=== PATIENT | male | born 1955 | race Caucasian/White ===

== ENCOUNTER → 2017-10-07 07:30 | Outpatient (CLI) | payer OTHER, SELFPAY ==
[2017-10-07 09:10] LABS: Add Manual Diff / Slide Review NO; Basophils Percent Auto 0.6 % (0-2); Eosinophils Percent Auto 6.6 % (2-4); Hematocrit 44.2 % (41-53); Hemoglobin 15.2 g/dL (13.5-17.5); Lymphocytes Percent Auto 31.7 % (25-40); Mean Corpuscular HGB Conc 34.4 % (30-36); Mean Corpuscular Hemoglobin 28.5 PG (26-34); Mean Corpuscular Volume 82.8 fL (80-100); Monocytes Percent Auto 8.5 % (3-14); Neutrophils Absolute Auto 3200 /uL (3000-5900); Neutrophils Percent Auto 52.6 % (50-75); Platelet Count 236 X10^3/uL (150-400); Red Blood Cell Count 5.34 X10^6/uL (4.5-5.9); Red Cell Distribution Width 14.1 % (11.6-14.8)
[2017-10-07 09:41] LABS: Calcium 9.2 mg/dL (8.4-10.2); Estimated Glomerular Filt Rate > 60.0 mL/min (>60); Glucose 91 mg/dL (80-110); HEMOLYSIS < 15 (0-50); Potassium 3.8 mmol/L (3.4-5.1); Sodium 142 mmol/L (137-145)
== END ==
PROVIDERS: PCP Family Medicine; Visit Provider Internal Medicine Cardiovascular Disease
DX: R93.1 Abnormal findings on diagnostic imaging of heart and coronary circulation (principal); I10 Essential (primary) hypertension; E78.00 Pure hypercholesterolemia, unspecified
CPT/HCPCS: 36415; 80048; 85025

== ENCOUNTER → 2017-10-28 09:21 | Outpatient (CLI) | payer OTHER, SELFPAY ==
--- NOTE | 2017-10-28 09:24 | DI.RAD.S_ITS ---
PROCEDURE: XR ELBOW RT MIN 3V INDICATIONS: Chronic elbow pain TECHNIQUE: 3 views of the elbow were acquired. COMPARISON: None. FINDINGS: Bones: No fractures or dislocations. No suspicious bony lesions. Soft tissues: No elbow joint effusion. No suspicious soft tissue calcifications. IMPRESSION: No trauma found, no appreciable degenerative change seen. Normal for age, source of current symptoms is not seen. Dictated by: Rashad Silva M.D. on 10/28/2017 at 10:58 Approved by: Rashad Silva M.D. on 10/28/2017 at 10:58
== END ==
PROVIDERS: PCP Family Medicine; Visit Provider Nurse Practitioner Family
DX: M25.522 Pain in left elbow (principal)
CPT/HCPCS: 73080

== ENCOUNTER → 2018-03-29 14:58 | Outpatient (CLI) | payer OTHER, SELFPAY ==
[2018-03-29 17:28] LABS: Hemoglobin A1C% w Est Avg Glu 6.6 % (4.0-6.0)
== END ==
PROVIDERS: PCP Family Medicine; Visit Provider Family Medicine
DX: G62.9 Polyneuropathy, unspecified (principal)
CPT/HCPCS: 36415; 83036

== ENCOUNTER → 2018-05-18 06:57 | Outpatient (CLI) | payer OTHER, SELFPAY ==
[2018-05-18 07:44] LABS: BUN Creatinine Ratio 17.8 (6-22); Blood Urea Nitrogen 16 mg/dL (9-20); Calcium 9.4 mg/dL (8.4-10.2); Carbon Dioxide 29 mmol/L (22-32); Chloride 105 mmol/L (98-107); Cholesterol 141 mg/dL (140-199); Estimated Glomerular Filt Rate > 60.0 mL/min (>60); Glucose 99 mg/dL (80-110); HDL Cholesterol 35 mg/dL (40-60); HEMOLYSIS < 15 (0-50); LDL Cholesterol Calculated 78 mg/dL (<100); Potassium 4.3 mmol/L (3.4-5.1); Sodium 146 mmol/L (137-145); Triglycerides 138 mg/dL (35-150)
[2018-05-18 08:01] LABS: Creatinine Urine Random 107.2 mg/dL
[2018-05-18 08:08] LABS: Microalbumi Creatinin Ratio Ur 5.5 ug/mg CR (<30); Microalbumin Urine Random < 0.6 mg/dL (0-1.6)
[2018-05-18 08:32] LABS: Vitamin B12 469 pg/mL (239-931)
[2018-05-18 08:33] LABS: Hemoglobin A1C% w Est Avg Glu 6.1 % (4.0-6.0)
== END ==
PROVIDERS: PCP Family Medicine; Visit Provider Family Medicine
DX: E11.9 Type 2 diabetes mellitus without complications (principal); G62.9 Polyneuropathy, unspecified
CPT/HCPCS: 36415; 80048; 80061; 82043; 82570; 82607; 83036

== ENCOUNTER → 2018-07-06 10:54 | Outpatient (CLI) | payer OTHER, SELFPAY ==
--- NOTE | 2018-07-06 12:20 | DIET.PN ---
Diabetes Intake: Initial Assessment/Basic Nutrition Assess: 63 YOM referred for type 2 diabetes. Pt is newly diagnosed (03/24) with an A1c of 6.6. Since diagnosis pt has removed all foods with sugar as a main ingredient and has switched to whole grains. Pt was present for assessment and is very supportive and involved in pts diabetes care. Pt does complain of continued neuropathy which has gone from sharp pains to more numbness. Labs: Per pt report: A1c: 6.6 (03/29/18) 6.1 (05/18/18) ; TC: 141 ; LDL: 78 ; HDL: 35 L ; Tri Meds: N/A Supps: [place] 3, ALA, B Complex, Tumeric, Vit D Wt: 250 # (down from 260) Ht: 72? BMI: 34 (obese) Exercise: Walking .25-0.5 mile 2x/day DX: Altered nutrition related laboratory values related to impaired glucose metabolism, lack of previous exposure to nutrition information as evidenced by pt report, diagnosis of diabetes, previous diet high in refined carbohydrates. Intervention: 1. Discussed pathophysiology of diabetes. Reviewed A1c and its correlation to blood glucose numbers. Discussed recommended BG ranges. 2. Discussed importance of self-monitoring, how often, and when to check. 3. Reviewed hyper/hypoglycemia and treatment. 4. Reviewed safe disposal of equipment (strip/lancets/insulin needles). 5. Discussed the impact of nutrition/diet on blood sugar control.? Discussed fed versus non-fed state.?? 6. Discussed the effect of carbohydrates/protein/fat on blood sugar control.? Stressed importance of consistent carbohydrate intake at each meal and provided instructions for recommended servings/portions of carbohydrates/protein per meal. Provided pt with educational material. 7. Reviewed carbohydrate counting and measuring carbohydrate content via servings sizes and reading nutrition labels.? Provided handouts.?? 8. Discussed the difference between simple versus complex carbohydrates and the effect of fiber on blood sugar control.? Discussed various methods to increase fiber content in diet. 9. Stressed importance of meal timing and not going >4-5 hours between meals. Encouraged adding protein to evening snack to support glucose control overnight. Patient agreeable. 10. Discussed healthy weight loss goals of 1-2lbs per week through diet and exercise.? Pt agreeable to walking at least 30 minutes daily. 11. Created SMART goals for pt self-care and success. SMART Goals: 1. Keep daily food record and monitor FBG and 2 hr PP mealtime to track for patterns in CBG. 2. Begin reading food labels and measuring/weighing food for consistent carb couting. 3. Increase PA 30min 5x/week. Begin including light resistance training. Monitor/Evaluate: Anticipate excellent compliance. Nutrition F/U scheduled for 1 mo to discuss pro/fat/sodium intake.
== END ==
PROVIDERS: PCP Family Medicine; Visit Provider Family Medicine
DX: E11.9 Type 2 diabetes mellitus without complications (principal)
CPT/HCPCS: 97802

== ENCOUNTER → 2018-08-02 07:29 | Outpatient (CLI) | payer OTHER, SELFPAY ==
[2018-08-02 08:22] LABS: Hemoglobin A1C% w Est Avg Glu 5.6 % (4.0-6.0)
[2018-08-02 08:24] LABS: BUN Creatinine Ratio 16.7 (6-22); Blood Urea Nitrogen 15 mg/dL (9-20); Calcium 9.2 mg/dL (8.4-10.2); Carbon Dioxide 28 mmol/L (22-32); Chloride 106 mmol/L (98-107); Estimated Glomerular Filt Rate > 60.0 mL/min (>60); Glucose 94 mg/dL (80-110); HEMOLYSIS 22 (0-50); Sodium 141 mmol/L (137-145)
[2018-08-02 08:35] LABS: Creatinine Urine Random 83.5 mg/dL
[2018-08-02 08:40] LABS: Microalbumi Creatinin Ratio Ur 7.1 ug/mg CR (<30); Microalbumin Urine Random 0.6 mg/dL (0-1.6)
== END ==
PROVIDERS: PCP Family Medicine; Visit Provider Family Medicine
DX: E11.9 Type 2 diabetes mellitus without complications (principal); E78.5 Hyperlipidemia, unspecified; I10 Essential (primary) hypertension
CPT/HCPCS: 36415; 80048; 82043; 82570; 83036

== ENCOUNTER → 2018-08-05 13:28 | Outpatient (CLI) | payer OTHER, SELFPAY ==
--- NOTE | 2018-08-05 14:40 | DIET.PN ---
INDIVIDUAL NUTRITION ASSESSMENT? ? ASSESS:? Pt recently (2 wks) decided to be vegan. Has cut out all meat/poultry/fish products. Sources of protein include lentils, beans, nuts, and occasional yogurt and cheese. This has caused a large increase in starchy foods such as potatoes, beans, tortillas, and pastas. Was monitoring BG regularly until recently when he changed his dietary patterns. His a1c is down a total of 1 point since diagnosis, and he has steadily continued to lose weight. ? LABS: A1c Per pt report: 5.6 ( 08/02/18) 6.1 (05/18/18) 6.6 (03/29/18) ? Wt: 244lb (08/05/18) 250 (07/06/18) ? NUTRITION Dx? 1. Altered nutrition related labs r/t type 2 DM, inconsistent carbohydrate intake as evidenced by pt report, dietary recall.?? ? INTERVENTION? 1. Reviewed blood sugar log and implications/reasons for elevated/decreased blood sugar.? Pt with good understanding.? 2. Reviewed carbohydrate counting and importance of consistent carbohydrate intake.? 3. Reviewed meal intake and importance of balanced meals (zohaib to prevent overeating).??? 4. Assisted patient create a meal plan for breakfast/lunch ideas to support glucose control. 5. Discussed ways to add protein without increasing starch as well food items to help avoid nutrient deficiencies. 6. Discussed the following: Fats effects on glucose, weight, heart disease, cholesterol Sat Vs Unsat Protein- animal and plant based options Low, med, high fat meats Sugar substitutes Sodium Grocery shopping guidelines Eating away from home Sick day guidelines?? ? MONITOR/EVALUATE: Pt receptive to information provided.? No follow up scheduled at this time. Pt will contact after next labs.
== END ==
PROVIDERS: PCP Family Medicine; Visit Provider Family Medicine
DX: E11.9 Type 2 diabetes mellitus without complications (principal)
CPT/HCPCS: 97803

== ENCOUNTER → 2019-03-28 13:29 | Outpatient (CLI) | payer OTHER, SELFPAY | PROVIDERS: PCP Family Medicine; Visit Provider Nurse Practitioner | DX: L02.91 Cutaneous abscess, unspecified (principal) | CPT/HCPCS: 87070; 87075; 87077; 87205 ==

== ENCOUNTER → 2019-05-03 08:35 | Outpatient (CLI) | payer OTHER, SELFPAY ==
[2019-05-03 09:36] LABS: Hemoglobin A1C% w Est Avg Glu 5.9 % (4.0-6.0)
[2019-05-03 09:44] LABS: Cholesterol 149 mg/dL (140-199); HDL Cholesterol 36 mg/dL (40-60); LDL Cholesterol Calculated 82 mg/dL (<100); Triglycerides 156 mg/dL (35-150)
[2019-05-03 10:28] LABS: TSH w/ Reflex to FT4 1.86 uIU/mL (0.47-4.68)
== END ==
PROVIDERS: PCP Family Medicine; Visit Provider Family Medicine
DX: G62.9 Polyneuropathy, unspecified (principal); E11.9 Type 2 diabetes mellitus without complications
CPT/HCPCS: 36415; 80061; 83036; 84443

== ENCOUNTER 2019-06-29 16:17 | Observation (INO) | payer OTHER, SELFPAY ==
[2019-06-29 16:23] VITALS: BP 176/88; PULSE 74; RESP 16; TEMP 36.2; O2SAT 97; BMI 33.9
--- NOTE | 2019-06-29 19:18 | ED.MALEGU ---
HPI - Male Genitourinary General Chief complaint: Urogenital-Male Stated complaint: unable to urinate x10 hours Time Seen by Provider: 06/29/19 19:18 Source: patient Mode of arrival: Ambulatory History of Present Illness HPI Narrative: 64-year-old gentleman with a history of hypertension, hyperlipidemia, depression presents with acute urinary retention onset today. Last void was approximately 10 hours prior to presenting to the emergency department. He describes no new medications, no esot-ekg-judqiek medications specifically no cough or cold medications and no herbal supplements. He has never had prostate issues of which she is aware. He is never been on prostate medications and has never had urinary retention or Foy catheter placement previously. Related Data Home Medications Medication Instructions Recorded Confirmed cholecalciferol (vitamin D3) #0 11/10/16 04/11/19 [Vitamin D3] omega 3-kev-efm-fish oil [Fish Oil] 1,000 mg PO #0 11/10/16 04/11/19 vitamin B complex [B 1 tab PO QDAY #0 11/10/16 04/11/19 Complex-Vitamin B12] Resmed Airsense 10 CPAP #1 ea 09/08/18 04/11/19 Previous Rx's Medication Instructions Recorded losartan 100 mg tablet 100 mg PO QDAY #90 tab 04/06/19 citalopram 40 mg tablet 40 mg PO QDAY #90 tab 04/18/19 lovastatin 40 mg tablet 40 mg PO HS #90 tab 04/18/19 metoprolol succinate 25 mg 25 mg PO DAILY #90 tab 04/18/19 tablet,extended release 24 hr furosemide 20 mg tablet 20 mg PO QDAY #90 tab 06/27/19 potassium chloride 20 mEq 20 meq PO QDAY #90 tab 06/27/19 tablet,extended release(part/cryst) Allergies Allergy/AdvReac Type Severity Reaction Status Date / Time No Known Drug Allergies Allergy Verified 06/29/19 16:23 Review of Systems Review of Systems Narrative: Denies ? fever ? cough ? cold ? chills ? chest pain ? dyspnea ? orthopnea ? wheezing ? abdominal pain ? change to bowel or bladder habits ? nausea vomiting ? skin changes ? rashes Patient History Medical History Acne (Resolved 1969) DM type 2 (diabetes mellitus, type 2) (Chronic) Fracture of arm (Resolved) Hyperlipidemia (Chronic) Hypertension (Chronic) Measles (Resolved 1963) Shortness of breath (Chronic) Surgical History Anesthesia (Resolved 10/14/16) No history of previous surgery (Resolved) Family History Mother Age: 91 Hypertension High cholesterol Grandmother Mental health problem Father Heart failure Grandfather Stroke Grandmother No problems noted. Social History marital status: household members: spouse lives independently: Yes caregiver/support person: No housing: house pets and animals: Yes education level: college occupational status: employed Smoking Status: Never smoker second hand exposure: No alcohol intake: current substance use type: does not use Smoking Status: Never smoker Exam Narrative Exam Narrative: General: Alert appropriate in no acute distress Respiratory: Able to speak in full sentences, no obvious respiratory distress Skin: No obvious rashes, warm and dry Abdomen: Tender slightly distended bedside ultrasound shows at least a L of fluid in the bladder. Neurologic: Grossly intact no obvious asymmetries or abnormalities Psych, appropriate insight and affect, cooperative Initial Vital Signs Initial Vital Signs: Vital Signs Temperature 97.1 F L 06/29/19 16:23 Pulse Rate 74 06/29/19 16:23 Respiratory Rate 16 06/29/19 16:23 Blood Pressure 176/88 H 06/29/19 16:23 Pulse Oximetry 97 06/29/19 16:23 Course Course Course Narrative: Nurses unable to pass Foy catheter with 3 attempts. I attempted with a coude catheter and also failed x2. I have contacted Dr. Robertson who is immediately available and actually has been able to come to the department and is currently trying to place a catheter 9:30 Dr. Robertson is unable to place a catheter in the department. Patient will be taken to the operating room. He has been given a mg of IM Dilaudid to help with pain control. Orders Ordered: Discontinued Medications Hydromorphone HCl (Dilaudid) 0.5 mg IV NOW ONE Stop: 06/29/19 20:39 Hydromorphone HCl (Dilaudid) 0.5 mg IM NOW ONE Stop: 06/29/19 20:58 Hydromorphone HCl (Dilaudid) 1 mg IM NOW ONE Stop: 06/29/19 20:59 Last Admin: 06/29/19 21:01 Dose: 1 mg Documented by: REG Lidocaine HCl (Urojet) 5 ml TOP NOW ONE Stop: 06/29/19 19:13 Last Admin: 06/29/19 19:30 Dose: 5 ml Documented by: DELMARN Lidocaine HCl (Urojet) 5 ml TOP NOW ONE Stop: 06/29/19 19:21 Last Admin: 06/29/19 19:54 Dose: 5 ml Documented by: DELMARN Lidocaine HCl (Urojet) 20 ml TOP NOW ONE Stop: 06/29/19 20:39 Last Admin: 06/29/19 21:01 Dose: 20 ml Documented by: DELMARN Lidocaine HCl (Urojet) 5 ml TOP NOW ONE Stop: 06/29/19 20:54 Vital Signs Vital signs: Vital Signs - 8 hr 06/29/19 16:23 Temperature 97.1 F L Pulse Rate 74 Respiratory Rate 16 Blood Pressure 176/88 H Pulse Oximetry 97 Discharge Plan Departure Patient Disposition: Admitted as Observation Clinical Impression: Acute retention of urine
[2019-06-29] MEDS: LIDOCAINE 2% (UROJET) 5 ML GEL TOP ×2 (19:30→19:54)
--- NOTE | 2019-06-29 19:54 | PC.NURSE ---
Tried to place catheter, blood noted in tube without catheter being in bladder. unable to advance. Switched to Coude 16F with same effect. Provider aware and will be in room with next attempt.
--- NOTE | 2019-06-29 19:57 | PC.NURSE ---
Pt unable to urinate for about 11 hours. States has been told has enlarged prostate.
[2019-06-29] MEDS: LIDOCAINE 2% (UROJET) 5 ML GEL 20 ML TOP (21:01)
[2019-06-29] MEDS: HYDROMORPHONE 1 MG INJ IM (21:01)
[2019-06-29 21:49] VITALS: BP 144/82; PULSE 60; O2SAT 95
--- NOTE | 2019-06-29 21:49 | PM.CN ---
History of Present Illness Consult details Date Patient Seen: 06/29/19 Time Patient Seen: 21:50 Chief complaint: unable to urinate x10 hours Reason for consult: Urinary retention Requesting provider: Shannan Hatch Narrative: Mr. rebecca sal is a 64-year-old white male who presented to the [facility] Emergency Department at approximately 4:00 p.m. the stay after having not been able to void since he went to bed last evening. He has had multiple attempts to void at home before presenting to the emergency department. Once in the emergency department staff were unable to successfully positioned a catheter for urinary drainage. bladder scan revealed a residual volume of a least 1100 cc. He denies previous history of prostate or urethral instrumentation surgery or infection. He and his both endorse history of mixed obstructive and irritative symptoms that have waxed and waned over the last approximately 10 years. His symptom complex is been attributed to ?enlarged prostate?. He denies family history of prostate cancer or disease. Meds Home Medications and Allergies Home Medications Medication Instructions Recorded Confirmed Type cholecalciferol (vitamin D3) #0 11/10/16 04/11/19 History [Vitamin D3] omega 2-jmg-gtn-fish oil [Fish Oil] 1,000 mg PO #0 11/10/16 04/11/19 History vitamin B complex [B 1 tab PO QDAY #0 11/10/16 04/11/19 History Complex-Vitamin B12] Resmed Airsense 10 CPAP #1 ea 09/08/18 04/11/19 History losartan 100 mg tablet 100 mg PO QDAY #90 tab 04/06/19 04/11/19 Rx citalopram 40 mg tablet 40 mg PO QDAY #90 tab 04/18/19 Rx lovastatin 40 mg tablet 40 mg PO HS #90 tab 04/18/19 Rx metoprolol succinate 25 mg 25 mg PO DAILY #90 tab 04/18/19 Rx tablet,extended release 24 hr furosemide 20 mg tablet 20 mg PO QDAY #90 tab 06/27/19 Rx potassium chloride 20 mEq 20 meq PO QDAY #90 tab 06/27/19 Rx tablet,extended release(part/cryst) Allergies Allergy/AdvReac Type Severity Reaction Status Date / Time No Known Drug Allergies Allergy Verified 06/29/19 16:23 Review of Systems Review of Systems ROS Unobtainable: All systems reviewed & are unremarkable except as noted in HPI and below Exam Vital Signs (past 8 hours): - 06/29/19 16:23 Temperature 97.1 F L Pulse Rate 74 Respiratory Rate 16 Blood Pressure 176/88 H Pulse Oximetry 97 Oxygen Delivery Method Room Air Narrative Exam Narrative: He is a well that well-developed moderately obese white male pacing about the emergency department room. He complains of urinary urgency and inability to. Head and neck exam-male pattern balding sclerae are clear neck is supple. Chest-equal and clear expansion bilaterally and clear. Heart-regular rate and rhythm. Abdomen-round moderately obese. Bladder is not palpable due to have overall abdominal firmness. Urgency is and mild tenderness elicited with palpation in the suprapubic area. Genitalia-normal circumcised male. Scrotum without abnormality. Testes descended bilaterally. Extremities-no pallor cyanosis clubbing or edema. Objective ECG Impression: 1. Urinary retention. 2. Inability to pass catheter at bedside. Assessment & Plan Assessment & Plan narrative: Assessment: 1. Urinary retention. 2. Inability to position urinary drainage catheter at bedside. Plan: 1. Discussion informed consent and scheduling this late hour in the evening for cystoscopy, clot evacuation, and difficult catheter placement.
--- NOTE | 2019-06-29 22:12 | PM.PREOP ---
Pre-operative Note Interval Note History & Physical reviewed/Exam performed by Physician: Yes Changes to H&P: No
[2019-06-29] MEDS: CEFAZOLIN 2 GM/100 ML FROZ.PIGGY IV (22:30)
--- NOTE | 2019-06-29 22:50 | SUR.OPER ---
Lithotomy on padded OR bed, head on pillow, arms secured on padded arm boards at <90 degrees abduction. Legs secured in padded yellow fins stirrups.
[2019-06-29] MEDS: BACITRACIN OINT 0.9 GM PCKT 1 APPLIC TOP (23:23)
--- NOTE | 2019-06-29 23:42 | P.OP_ITS ---
Operative Date/Time/Diagnoses Date of procedure: 06/29/19 Time of procedure: 23:42 Post-op diagnosis: same Procedure & Clinicians Procedure: 1. Cystoscopy. 2. Placement of suprapubic catheter. Same procedure as scheduled: No (1. Urinary retention. 2. Inability to place Foy catheter. ) Indications: 1. Urinary retention. 2. Inability to place urinary catheter in emergency department. Surgeon: Zeynep Robertson Click Yes if Unassisted: Yes Anesthesia Type: General Operative Notes Findings: 1. Penile urethra normal. 2. False passage proximal bulbar urethra. 3. Inability to visualize or cannulate with 0.35 guidewire [place] pathway proximally to bladder. Closure Type: not applicable Specimen(s): none sent Applied: catheter (12 Indonesian pigtail suprapubic catheter.) Estimated Blood Loss (mL): 0 Blood products transfused: none Tourniquet time (min): 0 Procedure in detail: The patient was positioned in supine and administered general anesthesia. He was then repositioned in semi lithotomy in the lower abdomen genitalia and groin were prepped and draped in sterile fashion. The 22 Indonesian panendoscope was advanced into the lower urinary tract with findings as described above. Unable to visualize a clear pathway approximately a 0.35 sensor tip guidewire which was utilized and gently advanced and gently probed in various angles and positions without successful passage proximally. Further attempts to visualize or access the bladder in retrograde fashion were then abandoned. The lower abdomen genitalia and groin were then prepped and draped in sterile fashion once again and a as small incision was made in the midline suprapubic region about 4 cm above the pubic symphysis down to the rectus fascia a 12 Indonesian pigtail suprapubic catheter was then advanced into the bladder without difficulty the pigtail was then set a urine specimen was also obtained and sent for culture. The catheter was then secured to the skin with 2 0 silk and a drain dressing and tape were applied the catheter system was then further secured to an adhesive leg old in the upper left thigh the bag was placed to gravity drainage. Patient was then repositioned supine awakened transferred to a gurney and and transported to recovery in stable condition. Complications: none Post-operative Condition: stable Disposition: PACU Plan for aftercare: Discharge to home.
[2019-06-29 23:45] VITALS: BP 147/78; PULSE 97; RESP 30; O2SAT 94
[2019-06-29 23:49] VITALS: BP 139/85; PULSE 911; RESP 100; TEMP 36.1
[2019-06-29 23:50] VITALS: BP 159/97; PULSE 94; RESP 19; O2SAT 96
[2019-06-30 00:05] VITALS: BP 166/89; PULSE 82; RESP 20; O2SAT 91
[2019-06-30] MEDS: OXYCODONE/APAP 5/325 PREPACK 1 BOTTLE MISC (00:11)
[2019-06-30 00:20] VITALS: BP 150/89; PULSE 80; RESP 13; O2SAT 96
--- NOTE | 2019-06-30 00:43 | SUR.PHASEII ---
Orders from MD to discharge pt to home care. Leg bag teaching provider along with instructions on how to empty and clean the large cath bag. Pillpak issued from ED. Pt received for percocet for pain control thru the nite and Rx from MD to be filled in AM. Additional supplies provided such as brief,abd pad and tape to reinforce abd drsg if needed. Pt dressed with assistance and was transported to ED entrance via [facility] by MIKE Blevins.
== END 2019-06-30 00:42 | disposition home or self-care (01) ==
LOC: ED 21:35 → AC 22:14
PROVIDERS: Admitting Provider Specialist; Emergency Provider Emergency Medicine; PCP Family Medicine; Visit Provider Specialist
PROC: 0TJB8ZZ Inspection of Bladder, Via Natural or Artificial Opening Endoscopic (ICD-10-PCS; CPT 52000; principal; 2019-06-29 22:00)
DX: R33.9 Retention of urine, unspecified (principal); I10 Essential (primary) hypertension; E78.5 Hyperlipidemia, unspecified; F32.9 Major depressive disorder, single episode, unspecified; E11.9 Type 2 diabetes mellitus without complications; G47.33 Obstructive sleep apnea (adult) (pediatric); N36.5 Urethral false passage
CPT/HCPCS: 51102; 36415; 51798; 87086; 96372; 99283; 99284; G0378; J0690; J1170; J2704; J3010

== ENCOUNTER → 2020-04-27 08:38 | Outpatient (CLI) | payer OTHER, SELFPAY ==
[2020-04-27 09:54] LABS: Add Manual Diff / Slide Review NO; Basophils Absolute Auto 100 /uL (0-100); Basophils Percent Auto 0.8 % (0-2); Eosinophils Absolute Auto 600 /uL (0-450); Eosinophils Percent Auto 8.4 % (2-4); Hematocrit 45.2 % (41-53); Lymphocytes Absolute Auto 2100 /uL (1100-4500); Mean Corpuscular HGB Conc 33.1 % (30-36); Mean Corpuscular Hemoglobin 27.8 PG (26-34); Mean Corpuscular Volume 84.1 fL (80-100); Monocytes Absolute Auto 600 /uL (0-900); Monocytes Percent Auto 8.5 % (3-14); Neutrophils Absolute Auto 4000 /uL (1500-7000); Neutrophils Percent Auto 54.3 % (50-75); Platelet Count 214 X10^3/uL (150-400); Red Blood Cell Count 5.38 X10^6/uL (4.5-5.9); Red Cell Distribution Width 13.9 % (11.6-14.8); White Blood Cell Count 7.4 X10^3/uL (4.5-11.0)
[2020-04-27 10:06] LABS: Alanine Aminotransferase 41 IU/L (<50); Albumin 4.1 g/dL (3.5-5.0); Albumin Globulin Ratio 1.3 (1.0-2.8); Alkaline Phosphatase 101 U/L (38-126); Aspartate Aminotransferase 38 IU/L (17-59); BUN Creatinine Ratio 16.9 (6-22); Bilirubin Total 0.7 mg/dL (0.2-1.3); Blood Urea Nitrogen 15 mg/dL (9-20); Calcium 9.1 mg/dL (8.4-10.2); Carbon Dioxide 28 mmol/L (22-32); Chloride 107 mmol/L (98-107); Estimated Glomerular Filt Rate > 60.0 mL/min (>60); Globulin 3.1 g/dL (1.7-4.1); Glucose 121 mg/dL (80-110); HEMOLYSIS < 15 (0-50); Potassium 4.2 mmol/L (3.4-5.1); Sodium 138 mmol/L (137-145); Total Protein 7.2 g/dL (6.3-8.2)
[2020-04-27 10:16] LABS: Creatinine Urine Random 126.2 mg/dL
[2020-04-27 10:20] LABS: Microalbumi Creatinin Ratio Ur 10.3 ug/mg CR (<30); Microalbumin Urine Random 1.3 mg/dL (0-1.6)
[2020-04-27 10:32] LABS: Thyroid Stimulating Hormone 1.38 uIU/mL (0.47-4.68)
== END ==
PROVIDERS: PCP Family Medicine; Referring Provider Family Medicine; Visit Provider Family Medicine
DX: E11.9 Type 2 diabetes mellitus without complications (principal); E66.9 Obesity, unspecified; E78.5 Hyperlipidemia, unspecified; I10 Essential (primary) hypertension
CPT/HCPCS: 36415; 80053; 82043; 82570; 83036; 84443; 85025

== ENCOUNTER → 2020-08-07 07:23 | Outpatient (CLI) | payer OTHER, SELFPAY | PROVIDERS: PCP Family Medicine; Referring Provider Family Medicine; Visit Provider Family Medicine | DX: E11.9 Type 2 diabetes mellitus without complications (principal) | CPT/HCPCS: 36415; 83036 ==

== ENCOUNTER → 2020-08-22 10:05 | Outpatient (CLI) | payer OTHER, SELFPAY ==
--- NOTE | 2020-08-22 10:07 | DI.RAD.S_ITS ---
PROCEDURE: XR CHEST 2V INDICATIONS: SOB TECHNIQUE: 2 views of the chest were acquired. COMPARISON: [facility], CHEST 1 VIEW, 01/08/2017, 16:17. [facility], CHEST 2 VIEW, 06/28/2017, 12:53. FINDINGS: Surgical changes and devices: None. Lungs and pleura: Left basilar scars or atelectasis. Lungs are otherwise clear. No pleural effusions or pneumothorax. Mediastinum: Mediastinal contours are normal. Heart size is normal. Bones and chest wall: No suspicious bony abnormalities. Soft tissues appear unremarkable. IMPRESSION: No acute cardiopulmonary disease. Dictated by: Mahesh Staton M.D. on 08/22/2020 at 13:01 Approved by: Mahesh Staton M.D. on 08/22/2020 at 13:02
== END ==
PROVIDERS: PCP Family Medicine; Referring Provider Family Medicine; Visit Provider Family Medicine
DX: R06.02 Shortness of breath (principal)
CPT/HCPCS: 71046

== ENCOUNTER → 2020-09-05 07:58 | Outpatient (CLI) | payer OTHER, SELFPAY ==
[2020-09-05] MEDS: COVID-19 VACC #1, MRNA(MOD) 100 MCG/0.5 ML VIAL IM (08:05)
== END ==
PROVIDERS: PCP Family Medicine; Visit Provider Internal Medicine
DX: Z23 Encounter for immunization (principal)
CPT/HCPCS: 0011A; 91301

== ENCOUNTER → 2020-10-03 07:39 | Outpatient (CLI) | payer OTHER, SELFPAY ==
[2020-10-03] MEDS: COVID-19 VACC #2, MRNA(MOD) 100 MCG/0.5 ML VIAL IM (07:44)
== END ==
PROVIDERS: PCP Family Medicine; Visit Provider Internal Medicine
DX: Z23 Encounter for immunization (principal)
CPT/HCPCS: 0012A; 91301

== ENCOUNTER → 2020-11-12 07:32 | Outpatient (CLI) | payer OTHER, SELFPAY ==
[2020-11-12 08:24] LABS: Hemoglobin A1C% w Est Avg Glu 6.6 % (4.0-6.0)
== END ==
PROVIDERS: PCP Family Medicine; Referring Provider Family Medicine; Visit Provider Family Medicine
DX: E11.9 Type 2 diabetes mellitus without complications (principal)
CPT/HCPCS: 36415; 83036

== ENCOUNTER → 2021-02-18 07:24 | Outpatient (CLI) | payer OTHER, SELFPAY ==
[2021-02-18 08:55] LABS: Hemoglobin A1C% w Est Avg Glu 6.4 % (4.0-6.0)
== END ==
PROVIDERS: PCP Family Medicine; Referring Provider Family Medicine; Visit Provider Family Medicine
DX: E11.9 Type 2 diabetes mellitus without complications (principal)
CPT/HCPCS: 36415; 83036

== ENCOUNTER → 2021-08-18 07:48 | Outpatient (CLI) | payer OTHER, SELFPAY ==
[2021-08-18 09:13] LABS: Hemoglobin A1C% w Est Avg Glu 7.4 % (4.0-6.0)
[2021-08-18 09:45] LABS: Alanine Aminotransferase 43 IU/L (<50); Albumin 4.1 g/dL (3.5-5.0); Albumin Globulin Ratio 1.4 (1.0-2.8); Alkaline Phosphatase 89 U/L (38-126); Aspartate Aminotransferase 40 IU/L (17-59); BUN Creatinine Ratio 17.6 (6-22); Bilirubin Total 0.6 mg/dL (0.2-1.3); Blood Urea Nitrogen 16 mg/dL (9-20); Calcium 9.1 mg/dL (8.4-10.2); Carbon Dioxide 27 mmol/L (22-32); Chloride 107 mmol/L (98-107); Cholesterol 150 mg/dL (140-199); Estimated Glomerular Filt Rate > 60.0 mL/min (>60); Globulin 2.9 g/dL (1.7-4.1); Glucose 140 mg/dL (80-110); HDL Cholesterol 35 mg/dL (40-60); HEMOLYSIS < 15 (0-50); LDL Cholesterol Calculated 87 mg/dL (<100); Sodium 142 mmol/L (137-145); Triglycerides 138 mg/dL (35-150)
[2021-08-18 19:29] LABS: Microalbumin Urine Random 7.1 mg/dL (0-1.6)
[2021-08-18 19:32] LABS: Creatinine Urine Random 168.2 mg/dL; Microalbumi Creatinin Ratio Ur 42.2 ug/mg CR (<30)
== END ==
PROVIDERS: PCP Family Medicine; Referring Provider Family Medicine; Visit Provider Family Medicine
DX: E11.9 Type 2 diabetes mellitus without complications (principal)
CPT/HCPCS: 36415; 80053; 80061; 82043; 82570; 83036

== ENCOUNTER → 2021-08-22 16:30 | Outpatient (CLI) | payer OTHER, SELFPAY ==
[2021-08-22 17:16] LABS: Creatinine Urine Random 127.7 mg/dL
[2021-08-22 17:21] LABS: Microalbumi Creatinin Ratio Ur 20.3 ug/mg CR (<30); Microalbumin Urine Random 2.6 mg/dL (0-1.6)
== END ==
PROVIDERS: PCP Family Medicine; Referring Provider Family Medicine; Visit Provider Family Medicine
DX: E11.9 Type 2 diabetes mellitus without complications (principal); R89.9 Unspecified abnormal finding in specimens from other organs, systems and tissues
CPT/HCPCS: 82043; 82570

== ENCOUNTER → 2021-12-02 13:48 | Outpatient (CLI) | payer OTHER, SELFPAY ==
[2021-12-02 16:07] LABS: Hemoglobin A1C% w Est Avg Glu 6.4 % (4.0-6.0)
== END ==
PROVIDERS: PCP Family Medicine; Referring Provider Family Medicine; Visit Provider Family Medicine
DX: E11.9 Type 2 diabetes mellitus without complications (principal)
CPT/HCPCS: 36415; 83036

== ENCOUNTER → 2022-03-05 08:10 | Outpatient (CLI) | payer MEDICARE, OTHER, SELFPAY ==
[2022-03-05 09:09] LABS: Add Manual Diff / Slide Review NO; Basophils Absolute Auto 0 /uL (0-100); Basophils Percent Auto 0.6 % (0-2); Eosinophils Absolute Auto 400 /uL (0-450); Eosinophils Percent Auto 6.3 % (2-4); Hematocrit 43.2 % (41-53); Hemoglobin 14.9 g/dL (13.5-17.5); Lymphocytes Absolute Auto 2000 /uL (1100-4500); Lymphocytes Percent Auto 30.4 % (25-40); Mean Corpuscular HGB Conc 34.5 % (30-36); Mean Corpuscular Hemoglobin 29.1 PG (26-34); Mean Corpuscular Volume 84.5 fL (80-100); Monocytes Absolute Auto 600 /uL (0-900); Monocytes Percent Auto 9.2 % (3-14); Neutrophils Absolute Auto 3500 /uL (1500-7000); Neutrophils Percent Auto 53.5 % (50-75); Platelet Count 200 X10^3/uL (150-400); Red Blood Cell Count 5.11 X10^6/uL (4.5-5.9); Red Cell Distribution Width 13.9 % (11.6-14.8); White Blood Cell Count 6.5 X10^3/uL (4.5-11.0)
[2022-03-05 09:27] LABS: Hemoglobin A1C% w Est Avg Glu 6.3 % (4.0-6.0)
[2022-03-05 10:17] LABS: Alanine Aminotransferase 44 IU/L (<50); Albumin 3.9 g/dL (3.5-5.0); Albumin Globulin Ratio 1.3 (1.0-2.8); Alkaline Phosphatase 77 U/L (38-126); Aspartate Aminotransferase 31 IU/L (17-59); BUN Creatinine Ratio 19.8 (6-22); Bilirubin Total 0.5 mg/dL (0.2-1.3); Blood Urea Nitrogen 17 mg/dL (9-20); Calcium 8.8 mg/dL (8.4-10.2); Carbon Dioxide 27 mmol/L (22-32); Chloride 105 mmol/L (98-107); Cholesterol 162 mg/dL (140-199); Estimated Glomerular Filt Rate > 60 mL/min (>60); Globulin 2.9 g/dL (1.7-4.1); Glucose 102 mg/dL (80-110); HDL Cholesterol 41 mg/dL (40-60); HEMOLYSIS < 15 (0-50); LDL Cholesterol Calculated 85 mg/dL (<100); Potassium 4.5 mmol/L (3.4-5.1); Sodium 140 mmol/L (137-145); Total Protein 6.8 g/dL (6.3-8.2); Triglycerides 181 mg/dL (35-150)
[2022-03-05 10:48] LABS: TSH w/ Reflex to FT4 1.27 uIU/mL (0.47-4.68)
[2022-03-05 11:30] LABS: Microalbumi Creatinin Ratio Ur 20.8 ug/mg CR (<30); Microalbumin Urine Random 2.6 mg/dL (0-1.6)
== END ==
PROVIDERS: PCP Family Medicine; Referring Provider Family Medicine; Visit Provider Family Medicine
DX: E11.9 Type 2 diabetes mellitus without complications (principal); E78.5 Hyperlipidemia, unspecified; I10 Essential (primary) hypertension
CPT/HCPCS: 36415; 80053; 80061; 82043; 82570; 83036; 84443; 85025

== ENCOUNTER → 2022-09-01 08:07 | Outpatient (CLI) | payer MEDICARE, OTHER, SELFPAY ==
[2022-09-02 05:21] LABS: Labcorp Hemoglobin (Hb) A1c 6.9 % (4.8-5.6)
== END ==
PROVIDERS: PCP Family Medicine; Referring Provider Family Medicine; Visit Provider Family Medicine
DX: E11.9 Type 2 diabetes mellitus without complications (principal)
CPT/HCPCS: 36415; 83036

== ENCOUNTER 2022-10-04 08:48 | Emergency (ER) | payer MEDICARE, OTHER, SELFPAY ==
[2022-10-04 09:00] VITALS: BP 110/61; PULSE 55; RESP 16; TEMP 35.8; O2SAT 97; BMI 35.2
--- NOTE | 2022-10-04 09:03 | DI.RAD.S_ITS ---
PROCEDURE: XR WRIST RT MIN 3V INDICATIONS: fall, right wrist swelling and pain TECHNIQUE: 4 views of the wrist were acquired. COMPARISON: None. FINDINGS: Bones: There is an impacted, comminuted distal radius fracture, with dorsal angulation of the fracture fragments in relation to the radial shaft. There is mild intra-articular involvement. There is associated mild the displaced ulnar styloid fracture. No radiocarpal dislocation can be seen Scaphoid view: No navicular fractures are seen. Soft tissues: No suspicious soft tissue calcifications. IMPRESSION: Distal radius fracture, with dorsal angulation, comminution, and impaction. Mild intra-articular involvement can be seen. An associated mild ulnar styloid fracture is also seen. Dictated by: Jose Sawyer M.D. on 10/04/2022 at 8:36 Approved by: Jose Sawyer M.D. on 10/04/2022 at 8:37
--- NOTE | 2022-10-04 09:15 | ED.GENADULT ---
HPI - General Adult General Chief complaint: Extremity Injury, Upper Stated complaint: possible broken rt wrist, fall, hit head Time Seen by Provider: 10/04/22 09:03 Source: patient Mode of arrival: Family Vehicle Limitations: no limitations History of Present Illness HPI narrative: Patient is a 67-year-old male who is here for evaluation of a right wrist injury. 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 He states he caught his left foot on the stairs. He did fall backwards. He landed directly on his right wrist. Stated that he then hit his head. He did not lose consciousness from hitting his head. He is no neck pain. He has no neck pain. He states he did pass out afterwards. He states that he very frequently passes out. He is done so with sudden increases in pain and has also passed out when he is had his blood taken. Prior to passing out he did not have any chest pain or shortness of breath. No palpitations. He currently states other than his right wrist pain he feels normal. He is no lower extremity injuries. No left upper extremity injuries. Related Data Home Medications Medication Instructions Recorded Confirmed cholecalciferol (vitamin D3) 50 ##0 11/10/16 09/08/22 mcg (2,000 unit) tablet (Vitamin D3) omega 4-toj-owt-fish oil 1,000 mg 1,000 mg PO ##0 11/10/16 09/08/22 (120 mg-180 mg) capsule (Fish Oil) vitamin B complex (B 1 tab PO QDAY ##0 11/10/16 09/08/22 Complex-Vitamin B12 tablet) melatonin 5 mg capsule mg PO .nightly 11/20/20 09/08/22 Resmed Airsense 10 CPAP #1 ea 02/26/22 09/08/22 Previous Rx's Medication Instructions Recorded metoprolol succinate 25 mg See Rx Instructions .Route 10/06/21 tablet,extended release 24 hr .COMPLEX #90 tabs furosemide 20 mg tablet See Rx Instructions .Route 12/15/21 .COMPLEX #90 tabs lovastatin 40 mg tablet See Rx Instructions .Route 01/05/22 .COMPLEX #90 tabs citalopram 40 mg tablet See Rx Instructions .Route 01/07/22 .COMPLEX #90 tabs alfuzosin 10 mg tablet,extended 10 mg PO DAILY #30 tabs 01/20/22 release 24 hr potassium chloride 20 mEq See Rx Instructions .Route 01/23/22 tablet,extended release(part/cryst) .COMPLEX #90 tabs losartan 100 mg tablet See Rx Instructions .Route 04/15/22 .COMPLEX #90 tabs metformin 500 mg tablet See Rx Instructions .Route 09/16/22 .COMPLEX #90 tabs Allergies Allergy/AdvReac Type Severity Reaction Status Date / Time No Known Drug Allergies Allergy Verified 10/04/22 09:03 Review of Systems Review of Systems ROS Unobtainable: All systems reviewed & are unremarkable except as noted in HPI and below Patient History Medical History (Updated 10/04/22 @ 11:57 by He Alfaro DO) Acne (1969) DM type 2 (diabetes mellitus, type 2) Fracture of arm Hyperlipidemia Hypertension Measles (1963) Shortness of breath Surgical History Anesthesia (10/14/16) No history of previous surgery Family History Mother Age: 94 Hypertension High cholesterol Grandmother Mental health problem Father Heart failure Grandfather Stroke Grandmother No problems noted. Social History marital status: household members: spouse lives independently: Yes caregiver/support person: No housing: house pets and animals: Yes education level: college occupational status: employed Smoking Status: Never smoker second hand exposure: No alcohol intake: current substance use type: does not use Smoking Status: Never smoker Substance Use Type: does not use Exam Initial Vital Signs Initial Vital Signs: Vital Signs Temperature 96.5 F L 10/04/22 09:00 Pulse Rate 55 L 10/04/22 09:00 Respiratory Rate 16 10/04/22 09:00 Blood Pressure 110/61 10/04/22 09:00 Pulse Oximetry 97 10/04/22 09:00 Oxygen Delivery Method Room Air 10/04/22 09:00 HENCO Head: normal to inspection and normocephalic Cardio Pulses: radial pulses present on the right Skin Other: Bruising to the dorsum of the right hand. Neuro Sensory Exam: no sensory deficits noted Extrem Other: Right shoulder and right elbow are unremarkable. Right hand is unremarkable. He does have pain to the right wrist. His left upper extremities unremarkable. Bilateral lower extremities are unremarkable. Procedures Orthopedic Splinting/Casting Injury #1: Side: right Upper Extremity Injury Location: wrist Upper Extremity Immobilizer: sugar tong splint Post splinting neuro exam: no change Post splinting vascular exam: no change Placed by: Provider Scores GCS Wanda coma scale eye opening: Spontaneous Wanda coma scale verbal response: Orientated [place] coma scale motor response: Obey commands [place] coma scale total score: 15 Nexus Score for C-Spine Focal Neurologic deficit present: No Midline spinal tenderness present: No Altered level of conciousness present: No Intoxication present: No Distracting Injury Present: No Nexus Criteria for C-spine: 0 Course Orders Ordered: ED Orders 10/04/22 09:03 XR wrist RT min 3V Stat Vital Signs Vital signs: Vital Signs - 8 hr 10/04/22 09:00 Temperature 96.5 F L Pulse Rate 55 L Respiratory Rate 16 Blood Pressure 110/61 Pulse Oximetry 97 Oxygen Delivery Method Room Air Medical Decision Making Imaging Data Extremity x-ray #1: Radiologist's Impression: PROCEDURE:? XR WRIST RT MIN 3V ? INDICATIONS: fall, right wrist swelling and pain ? TECHNIQUE:? 4 views of the wrist were acquired.? ? COMPARISON:? None. ? FINDINGS:? ? Bones:? There is an impacted, comminuted distal radius fracture, with dorsal angulation of the fracture fragments in relation to the radial shaft.? There is mild intra-articular involvement. ? There is associated mild the displaced ulnar styloid fracture. ? No radiocarpal dislocation can be seen ? Scaphoid view:? No navicular fractures are seen. ? Soft tissues:? No suspicious soft tissue calcifications.? IMPRESSION:? Distal radius fracture, with dorsal angulation, comminution, and impaction.? Mild intra-articular involvement can be seen. ? An associated mild ulnar styloid fracture is also seen. MDM Narrative Medical decision making narrative: Patient is neurovascularly intact. X-ray does show distal radius and ulna fracture. Patient was placed in a splint as described above. He was given care instructions and return precautions and follow-up instructions. There were no other injuries from the event. He did hit his head but there is no signs of any concussion. He is not on anticoagulation. He states that the reason he passed out was because of the pain in his wrist. This has happened to him in the past. They do feel that we can hold on further workup for this in the moment. Discharge Plan Departure Patient Disposition: Home Clinical Impression: Fracture of wrist, Fall Instructions: DI for Wrist Fracture, How to Take Care of Your Splint Activity Restrictions/Additional Instructions: The splint that was placed today does need to stay on and stay clean and stay dry. You do need to treat it like a cast. The sling is for your comfort. I recommend that tomorrow you contact the orthopedic doctors with a number provided below for a follow-up later this week. Continue to take all of your medications as directed. Return to the emergency department for new or worsening symptoms. Prescriptions: No Action melatonin 5 mg capsule PO .nightly vitamin B complex [B Complex-Vitamin B12] 1 EACH tablet 1 tab PO QDAY Qty: 0 omega 8-gcl-brz-fish oil [Fish Oil] 1,000 MG capsule 1,000 mg PO Qty: 0 cholecalciferol (vitamin D3) [Vitamin D3] 2,000 UNIT tablet Qty: 0 metoprolol succinate 25 mg tablet extended release 24 hr See Rx Instructions .ROUTE .COMPLEX Qty: 90 3RF Dose Instruction: TAKE 1 TABLET BY MOUTH DAILY Rx Instructions: TAKE 1 TABLET BY MOUTH DAILY furosemide 20 mg tablet See Rx Instructions .ROUTE .COMPLEX Qty: 90 2RF Dose Instruction: TAKE 1 TABLET BY MOUTH EVERY DAY Rx Instructions: TAKE 1 TABLET BY MOUTH EVERY DAY lovastatin 40 mg tablet See Rx Instructions .ROUTE .COMPLEX Qty: 90 0RF Dose Instruction: TAKE 1 TABLET BY MOUTH AT BEDTIME Rx Instructions: TAKE 1 TABLET BY MOUTH AT BEDTIME citalopram 40 mg tablet See Rx Instructions .ROUTE .COMPLEX Qty: 90 0RF Dose Instruction: TAKE 1 TABLET BY MOUTH EVERY DAY Rx Instructions: TAKE 1 TABLET BY MOUTH EVERY DAY alfuzosin 10 mg tablet extended release 24 hr 10 mg PO DAILY Qty: 30 1RF Rx Instructions: administer after the same meal each day potassium chloride 20 mEq tablet,ER particles/crystals See Rx Instructions .ROUTE .COMPLEX Qty: 90 3RF Dose Instruction: TAKE 1 TABLET BY MOUTH EVERY DAY Rx Instructions: TAKE 1 TABLET BY MOUTH EVERY DAY losartan 100 mg tablet See Rx Instructions .ROUTE .COMPLEX Qty: 90 1RF Dose Instruction: TAKE 1 TABLET BY MOUTH EVERY DAY Rx Instructions: TAKE 1 TABLET BY MOUTH EVERY DAY metformin 500 mg tablet See Rx Instructions .ROUTE .COMPLEX Qty: 90 0RF Dose Instruction: TAKE 1/2 TABLET BY MOUTH IN THE EVENING FOR 1 WEEK. THEN TAKE ONE TAB IN THE EVENING FOR 1 WEEK. THEN TAKE 1/2 TAB IN THE MORNING AND ONE TAB IN THE EVENING FOR ONE WEEK. THEN TAKE ONE TAB IN THE MORNING AND ONE TAB IN THE EVENING FOR 1 WEEK. THEN TAKE ONE TAB IN THE MORNING AND ONE AND 1/2 TAB IN THE EVENING FOR 1 WEEK. THEN TAKE TWO TAB IN THE MORNING AND TAKE TWO TABS IN THE EVENING. Rx Instructions: TAKE 1/2 TABLET BY MOUTH IN THE EVENING FOR 1 WEEK. THEN TAKE ONE TAB IN THE EVENING FOR 1 WEEK. THEN TAKE 1/2 TAB IN THE MORNING AND ONE TAB IN THE EVENING FOR ONE WEEK. THEN TAKE ONE TAB IN THE MORNING AND ONE TAB IN THE EVENING FOR 1 WEEK. THEN TAKE ONE TAB IN THE MORNING AND ONE AND 1/2 TAB IN THE EVENING FOR 1 WEEK. THEN TAKE TWO TAB IN THE MORNING AND TAKE TWO TABS IN THE EVENING. (DME) Resmed Airsense 10 CPAP Qty: 1 Dose Instruction: As directed Patient Comments: Pressure: 8-12 cmH2O DME: Antionette GEORGINA: 01/17/18 Rx Instructions: As directed Referrals: Mary Barrett MD [Primary Care Provider] - Joey Morgan MD [Physician] - Stand Alone Forms: Patient Portal/API
[2022-10-04 11:58] VITALS: BP 162/85; PULSE 78; RESP 16; O2SAT 99
== END 2022-10-04 12:15 | disposition home or self-care (01) ==
PROVIDERS: Emergency Provider Emergency Medicine; PCP Family Medicine
DX: S52.501A Unspecified fracture of the lower end of right radius, initial encounter for closed fracture (principal); S52.611A Displaced fracture of right ulna styloid process, initial encounter for closed fracture; W10.9XXA Fall (on) (from) unspecified stairs and steps, initial encounter
CPT/HCPCS: 29125; 73110; 99283

== ENCOUNTER 2022-10-22 11:29 | Day surgery (SDC) | payer MEDICARE, OTHER, SELFPAY ==
[2022-10-20 08:04] VITALS: BMI 35.5
[2022-10-22] VITALS (9 sets, daily range): BP systolic 139–174; BP diastolic 71–98; PULSE 64–93; RESP 12–18; TEMP 36.1–36.7; O2SAT 87–98; BMI 35.5
[2022-10-22] MEDS: LACTATED RINGERS 1,000 ML 42 ML IV ×2 (12:21→14:04)
[2022-10-22] MEDS: CEFAZOLIN 2 GM/100 ML PREMIX 100 ML IV (13:15)
--- NOTE | 2022-10-22 13:39 | SUR.OPER ---
Supine on padded OR bed, head on pillow, left arm secured on padded arm board at <90 degrees abduction, right arm prepped into sterile field & resting on padded armtable, legs uncrossed, safety belt at thigh, tape over blanket over lower legs.
[2022-10-22] MEDS: BUPIVACAINE 0.25% (PF) 30 ML, EPINEPHrine 0.15 MG INJ (13:49)
--- NOTE | 2022-10-22 14:24 | P.OP_ITS ---
Operative Date/Time/Diagnoses Date of procedure: 10/22/22 Time of procedure: 13:30 Pre-op diagnosis: Right distal radius fracture Post-op diagnosis: same Procedure & Clinicians Procedure: Open reduction internal fixation of a right distal radius fracture Same procedure as scheduled: Yes Indications: Right distal radius fracture Surgeon: Pedro Salcedo Click Yes if Unassisted: Yes Anesthesia Type: General Operative Notes Findings: Displaced extra-articular distal radius fracture Applied: implant(s) (Arthrex distal radius plate) Tourniquet time (min): 45 Procedure in detail: On date of service, patient was met in the holding area where the operative site was signed and witnessed by the OR staff. The surgery was once again discussed with the patient and any remaining questions or concerns were answered to the patient's full satisfaction. Time-out was performed verifying patient's name pr ocedure and operative site. Patient was taken back to the operating theater and placed on the operating table in a supine position. Great care was taken to ensure that all bony prominences were appropriately padded. Well-padded tourniquet was placed up along the upper extremity. Another time-out was performed verifying patient's name, procedure, and operative site. The upper extremity was then prepped and draped in the normal sterile fashion. Esmarch was used to exsanguinate the limb and the tourniquet was turned up to 250 mm of mercury. Fifteen blade was used to expose the distal radius. An incision was made over the FCR tendons. The FCR tendon was retracted and the floor of the tendon was opened with a 15 blade. The FPL tendon and muscle belly was retracted ulnarly giving us good visualization of the pronator quadratus. The pronator quadratus was excised off the distal radius using the 15 blade and then finished with a periosteal elevator. Next the brachia radialis attachment to the radial styloid was released to help with overall reduction. Retractors were placed allowing us good visualization of the distal radius as well as the shaft. A reduction maneuver was performed and a K-wire was placed holding a provisional reduction of the intra-articular distal radius fracture. C-arm was brought in to verify overall reduction. Once we were satisfied with the overall reduction, a plate was placed and held provisionally with K-wires. C-arm was once again used to verify plate positioning as well as reduction. The plate was then fixated to the distal fragment using locking screws. Lateral C-arm views were used to verify that the screws were not intra-articular or broaching the dorsal cortex. At this point we are able to use the plate to help fine tune the overall reduction. Once we were satisfied with the overall reduction the plate was then secured to the shaft with a combination of locking and nonlocking screws. Final x-rays were obtained. The wound was copiously irrigated and closed in a layered fashion. The wrist and hand were cleaned dried dressed. Patient was placed into a splint and taken to the PACU in stable condition. Complications: none Post-operative Condition: stable Disposition: PACU Plan for aftercare: In 2-3 days patient can come out of his splint. No restrictions to range of motion of the wrist or fingers. No lifting more than 2-3 lb.
[2022-10-22] MEDS: OXYCODONE IR 5 MG TABLET PO (14:40)
== END 2022-10-22 15:19 | disposition home or self-care (01) ==
PROVIDERS: PCP Family Medicine; Referring Provider Orthopaedic Surgery; Visit Provider Orthopaedic Surgery
PROC: (CPT 25608; principal; 2022-10-22 13:00)
DX: S52.561A Barton's fracture of right radius, initial encounter for closed fracture (principal); W01.198A Fall on same level from slipping, tripping and stumbling with subsequent striking against other object, initial encounter; Y93.H2 Activity, gardening and landscaping
CPT/HCPCS: 25608; C1713; J0171; J0690; J1100; J2405; J2704; J3010

== ENCOUNTER → 2022-11-24 09:18 | Outpatient (CLI) | payer MEDICARE, OTHER, SELFPAY ==
[2022-11-25 11:16] LABS: x Labcorp Estim. Avg Glu (eAG) 180 mg/dL (.); x Labcorp Hemoglobin A1c 7.9 % (4.8-5.6)
== END ==
PROVIDERS: PCP Family Medicine; Referring Provider Family Medicine; Visit Provider Family Medicine
DX: E11.9 Type 2 diabetes mellitus without complications (principal)
CPT/HCPCS: 36415; 83036

== ENCOUNTER 2022-12-25 07:30 | Day surgery (SDC) | payer MEDICARE, OTHER, SELFPAY ==
--- NOTE | 2022-12-25 | PATH_ITS ---
[facility] Accession Number: [id number] No. of containers..03 Tissue . 01 Material submitted: . PART A: sigmoid colon - SIGMOID POLYP SMALL X 2 PART B: rectum - RECTAL POLYP PART C: rectum - RECTAL POLYP # 2 . 01 Diagnosis: A. Sigmoid Colon, Polyp Small x2: Hyperplastic polyps. . B. Rectum, Polyp: Hyperplastic polyp. . C. Rectum, Polyp #2: Hyperplastic polyp. MRV 12/31/2022 1557 Local . 01 Electronically signed: . Jackie Pathak MD, Pathologist NPI- [id number] . 01 Gross description: . A. Received in formalin, labeled with the patient's name and 1. Sigmoid polyp (small) x2 consists of five biopsies, 0.2-0.3 cm, submitted entirely in A1. B. Received in formalin, labeled with the patient's name and 2. Rectal polyp consists of three biopsies, 0.2 to 0.5 cm, submitted entirely in B1. C. Received in formalin, labeled with the patient's name and 3. Rectal polyp #2 consists of three 0.2 to 0.4 cm biopsies, submitted entirely in C1. ([id number]) /MRV 12/29/2022 1441 Local . 01 Pathologist provided ICD-10: K63.5, K62.1 . 01 CPT . 814897, [id number], [id number] Specimen Comment: A courtesy copy of this report has been sent to [facility]ology Performed at: 01 [facility] [address] [place] [address], [place], [place] [id number] MD Carlos Manuel Tejada MD Phone: [phone]
[2022-12-25 07:46] VITALS: BP 167/94; PULSE 70; RESP 17; TEMP 36.3; O2SAT 97; BMI 34.5
[2022-12-25] MEDS: LACTATED RINGERS 1,000 ML 125 ML IV (07:58)
--- NOTE | 2022-12-25 09:48 | P.HP_ITS ---
History of Present Illness History of Present Illness Date Patient Seen: 12/25/22 Time Patient Seen: 09:40 Chief complaint: Colonoscopy Narrative: Mr. Concepcion presents today for a screening colonoscopy. He believes his last colonoscopy was approximately 5 years ago done in [place] [facility]. Thinks he probably had some polyps at that time. Has no family history of colon cancer and no concerning symptoms. Of note however during the prep about 2 days ago had a few drops of blood in his stool which she assumed were due to hemorrhoids but this is not common problem for him he is never had any bleeding from below. He otherwise has no questions or concerns and is ready to proceed [facility] Medical History (Updated 12/25/22 @ 09:50 by Renea Stanley MD) Acne (1969) DM type 2 (diabetes mellitus, type 2) Fracture of arm Hyperlipidemia Hypertension Measles (1963) Shortness of breath Sleep apnea Surgical History (Updated 10/20/22 @ 08:21 by Sofya Kessler RN) Anesthesia (10/14/16) Hx of cystoscopy (06/29/19) Family History Mother Age: 95 Hypertension High cholesterol Grandmother Mental health problem Father Heart failure Grandfather Stroke Grandmother No problems noted. Social History marital status: household members: spouse lives independently: Yes caregiver/support person: No housing: house pets and animals: Yes education level: college occupational status: employed Smoking Status: Never smoker second hand exposure: No alcohol intake: never substance use type: does not use Meds Home Medications and Allergies Home Medications Medication Instructions Recorded Confirmed Type cholecalciferol (vitamin D3) 50 2,000 unit PO DAILY ##0 11/10/16 12/25/22 History mcg (2,000 unit) tablet (Vitamin D3) omega 8-wku-sak-fish oil 1,000 mg 1,000 mg PO DAILY ##0 11/10/16 12/25/22 History (120 mg-180 mg) capsule (Fish Oil) vitamin B complex (B 1 tab PO QDAY ##0 11/10/16 12/25/22 History Complex-Vitamin B12 tablet) melatonin 5 mg capsule 5 mg PO .nightly 11/20/20 12/25/22 History citalopram 40 mg tablet See Rx Instructions .Route 01/07/22 12/25/22 Rx .COMPLEX #90 tabs alfuzosin 10 mg tablet,extended 10 mg PO DAILY #30 tabs 01/20/22 12/25/22 Rx release 24 hr potassium chloride 20 mEq See Rx Instructions .Route 01/23/22 12/25/22 Rx tablet,extended release(part/cryst) .COMPLEX #90 tabs Resmed Airsense 10 CPAP #1 ea 02/26/22 12/01/22 History losartan 100 mg tablet See Rx Instructions .Route 10/07/22 12/25/22 Rx .COMPLEX #90 tabs metoprolol succinate 25 mg 12.5 mg .Route .COMPLEX #90 tabs 10/12/22 12/25/22 Rx tablet,extended release 24 hr furosemide 20 mg tablet See Rx Instructions .Route 10/21/22 12/25/22 Rx .COMPLEX #90 tabs metformin 500 mg tablet 1,000 mg PO BID #360 tabs 10/28/22 12/25/22 Rx lovastatin 40 mg tablet See Rx Instructions .Route 12/16/22 12/25/22 Rx .COMPLEX #90 tabs Allergies Allergy/AdvReac Type Severity Reaction Status Date / Time No Known Drug Allergies Allergy Verified 12/01/22 09:17 Exam Vital Signs (past 8 hours): - 12/25/22 07:46 Temperature 97.4 F L Pulse Rate 70 Respiratory Rate 17 Blood Pressure 167/94 H Pulse Oximetry 97 Oxygen Delivery Method Room Air Oxygen Delivery Method Room Air Const General: cooperative, healthy appearing and comfortable Nutritional Appearance: obese HENMT Head: normal to inspection Eyes General: appearance normal, both eyes and all related structures Resp Effort & Inspection: normal respiratory effort and able to speak in complete sentences GI Palpation: soft and No tender Assessment & Plan Assessment and plan (1) History of colon polyps: Status: Acute (2) Colon cancer screening: Status: Acute Assessment & Plan narrative: Presents today for screening colonoscopy I discussed the risks benefits and alternatives including but not limited to perforation of the colon and an incomplete exam she fully understands these risks and would like to proceed.
[2022-12-25 10:29] VITALS: BP 103/57; PULSE 57; RESP 13; TEMP 37.2; O2SAT 94
[2022-12-25 10:34] VITALS: BP 109/68; PULSE 58; RESP 16; O2SAT 96
[2022-12-25 10:39] VITALS: BP 120/83; PULSE 58; RESP 16; TEMP 36.6; O2SAT 98
[2022-12-25 10:44] VITALS: BP 122/77; PULSE 54; RESP 14; TEMP 36.5; O2SAT 98
[2022-12-25 10:58] VITALS: BP 124/86; PULSE 56; RESP 14; TEMP 36.2; O2SAT 98
--- NOTE | 2022-12-25 11:04 | P.OP.COLON_ITS ---
Operative Date/Time/Diagnoses Date of procedure: 12/25/22 Time of procedure: 11:05 Pre-op diagnosis: History polyps, colon cancer screening Post-op diagnosis: same Procedure & Clinicians Study performed: Colonoscopy and biopsy Indications: History of polyps colon cancer screening Surgeon: Renea Stanley Procedure Notes Procedure in detail: Patient was taken to the endoscopy suite and placed in a left lateral decubitus position. A time-out was performed. With the help of anesthesiologist conscious sedation was induced and monitored throughout the case. A digital rectal exam was performed and there were no masses or strictures. The colonoscope was introduced into the anal canal and advanced through to the cecum. A photograph of the appendiceal orifice was obtained. The bowel prep was good [place] bowel prep score of 2. The scope was then withdrawn for a total of 13 minutes and there were 2 small sigmoid polyps that were removed with biopsy forceps. There was a rectal polyp and a 2nd polyp rectal polyp which were biopsied and sent in separate specimen jars. The scope was then retroflexed and a photograph of the internal hemorrhoidal piles was obtained. There were some prominent internal hemorrhoidal piles as well as some small scattered diverticula throughout the colon. Specimen(s): other (1. Sigmoid polyp, small x2 2. Rectal polyp 3. Second rectal polyp) Complications: none Post-procedure Plan for aftercare: Likely to be a 5-10 year follow-up but depends on pathology findings. I always recommend a fiber supplement for any patient with diverticula or polyps
== END 2022-12-25 11:01 | disposition home or self-care (01) ==
PROVIDERS: PCP Family Medicine; Referring Provider Surgery; Visit Provider Surgery
PROC: 0DJD8ZZ Inspection of Lower Intestinal Tract, Via Natural or Artificial Opening Endoscopic (ICD-10-PCS; CPT 45378; principal; 2022-12-25 08:30)
DX: Z12.11 Encounter for screening for malignant neoplasm of colon (principal); Z86.010 Personal history of colon polyps; K57.30 Diverticulosis of large intestine without perforation or abscess without bleeding; K64.8 Other hemorrhoids; K63.5 Polyp of colon; K62.1 Rectal polyp
CPT/HCPCS: 45380; J2405; J2704

== ENCOUNTER → 2023-02-24 08:49 | Outpatient (CLI) | payer MEDICARE, OTHER, SELFPAY ==
[2023-02-24 10:13] LABS: Creatinine Urine Random 190.2 mg/dL
[2023-02-24 10:15] LABS: Hemoglobin A1C% w Est Avg Glu 6.7 % (4.0-6.0)
[2023-02-24 10:17] LABS: Microalbumi Creatinin Ratio Ur 13.1 ug/mg CR (<30); Microalbumin Urine Random 2.5 mg/dL (0-1.6)
[2023-02-24 10:29] LABS: Alanine Aminotransferase 52 IU/L (<50); Albumin 4.1 g/dL (3.5-5.0); Albumin Globulin Ratio 1.6 (1.0-2.8); Alkaline Phosphatase 84 U/L (38-126); Aspartate Aminotransferase 35 IU/L (17-59); BUN Creatinine Ratio 15.7 (6-22); Bilirubin Total 0.5 mg/dL (0.2-1.3); Blood Urea Nitrogen 14 mg/dL (9-20); Calcium 9.5 mg/dL (8.4-10.2); Carbon Dioxide 25 mmol/L (22-32); Chloride 106 mmol/L (98-107); Cholesterol 147 mg/dL (140-199); Estimated Glomerular Filt Rate > 60 mL/min (>60); Globulin 2.5 g/dL (1.7-4.1); Glucose 115 mg/dL (80-110); HDL Cholesterol 38 mg/dL (40-60); HEMOLYSIS < 15 (0-50); LDL Cholesterol Calculated 75 mg/dL (<100); Potassium 4.2 mmol/L (3.4-5.1); Sodium 139 mmol/L (137-145); Total Protein 6.6 g/dL (6.3-8.2); Triglycerides 172 mg/dL (35-150)
== END ==
PROVIDERS: PCP Family Medicine; Referring Provider Family Medicine; Visit Provider Family Medicine
DX: E11.9 Type 2 diabetes mellitus without complications (principal)
CPT/HCPCS: 36415; 80053; 80061; 82043; 82570; 83036

== ENCOUNTER → 2023-03-04 10:16 | Outpatient (CLI) | payer MEDICARE, OTHER, SELFPAY ==
--- NOTE | 2023-03-04 10:21 | DI.RAD.S_ITS ---
PROCEDURE: XR KNEE RT 3V INDICATIONS: knee instability TECHNIQUE: 3 views of the knee were acquired. COMPARISON: None. FINDINGS: Bones: No fractures or dislocations. No suspicious bony lesions. Mild degenerative changes. Enthesophytes of the patella. Soft tissues: No joint effusion. No suspicious soft tissue calcifications. IMPRESSION: Mild degenerative changes. No significant radiographic abnormality to explain is stability. If symptoms persist consider MRI. Dictated by: Denilson Calloway M.D. on 03/04/2023 at 11:27 Approved by: Denilson Calloway M.D. on 03/04/2023 at 11:28
--- NOTE | 2023-03-04 10:21 | DI.RAD.S_ITS ---
PROCEDURE: XR KNEE LT 3V INDICATIONS: knee instability TECHNIQUE: 3 views of the knee were acquired. COMPARISON: [facility], CR, XR KNEE RT 3V, 03/04/2023, 10:26. FINDINGS: Bones: No fractures or dislocations. No suspicious bony lesions. Moderate medial lateral compartmental joint space narrowing. No remodeling. Soft tissues: No joint effusion. No suspicious soft tissue calcifications. IMPRESSION: Moderate symmetric osteoarthritis. No marginal osteophytes. Approved by: Zelalem Millan M.D. on 03/04/2023 at 15:59
== END ==
PROVIDERS: PCP Family Medicine; Referring Provider Family Medicine; Visit Provider Family Medicine
DX: M17.12 Unilateral primary osteoarthritis, left knee (principal); M25.369 Other instability, unspecified knee
CPT/HCPCS: 73562

== ENCOUNTER → 2023-03-24 09:34 | Outpatient (CLI) | payer MEDICARE, OTHER, SELFPAY ==
[2023-03-24 12:08] LABS: BUN Creatinine Ratio 17.6 (6-22); Blood Urea Nitrogen 16 mg/dL (9-20); Calcium 9.3 mg/dL (8.4-10.2); Carbon Dioxide 27 mmol/L (22-32); Chloride 104 mmol/L (98-107); Estimated Glomerular Filt Rate > 60 mL/min (>60); Glucose 112 mg/dL (80-110); HEMOLYSIS < 15 (0-50); Potassium 4.6 mmol/L (3.4-5.1); Sodium 139 mmol/L (137-145)
== END ==
PROVIDERS: Family Provider Family Medicine; PCP Family Medicine; Referring Provider Family Medicine; Visit Provider Family Medicine
DX: E11.9 Type 2 diabetes mellitus without complications (principal); F32.A Depression, unspecified
CPT/HCPCS: 36415; 80048

== ENCOUNTER 2023-03-25 10:45 | Outpatient (RCR) | payer MEDICARE, OTHER, SELFPAY ==
--- NOTE | 2023-03-16 10:50 | PT.OIE ---
Current Diagnoses Other instability, unspecified knee (03/16/23) Pain in right knee (03/16/23) Pain in left knee (03/16/23) Other symptoms and signs involving the musculoskeletal system (03/16/23) Past Medical History (Last Updated 10/20/22 @ 08:11 by Sofya Kessler RN) Acne (1969) DM type 2 (diabetes mellitus, type 2) Fracture of arm Hyperlipidemia Hypertension Measles (1963) Shortness of breath Sleep apnea Past Surgical History (Last Updated 10/20/22 @ 08:21 by Sofya Kessler RN) Anesthesia (10/14/16) Hx of cystoscopy (06/29/19) Visit Care Team Role Provider Type Mary Barrett MD Attending Provider Physician Family Provider Primary Care Provider Referring Provider Specialty: Family Practice Address: [address] [place] [address], [facility] Email: [email or web address] Physical Therapy Initial Evaluation PT-OP-A Visit Information Start: 03/16/23 10:41 Freq: Status: Active Protocol: Document 03/16/23 10:41 ED (Rec: 03/16/23 10:50 ED [id number]) Out-Patient Physical Therapy Visit Information Visit Information Visit Type Initial Evaluation Visit Start Time 08:15 Visit Stop Time 18:45 Total Visit Minutes 30 Visit Number 1 Evaluation Information Evaluation Date 03/16/23 PT-OP-B Current Condition Start: 03/16/23 10:41 Freq: Status: Active Protocol: Document 03/16/23 10:41 ED (Rec: 03/16/23 10:50 ED [id number]) Current Condition History of Current Condition Onset Date September Current Complaints B knee weakness History of Current Condition Pt states that for the past 6- 8 months that he has noticed progressive weakness in his legs, he specifies that it's his knees mostly. Pt denies having any balance deficits. He had a fall when climbing up some boulders and thinks it was due to his weakness. The fall did result in a wrist fracture. Pt states that he walks on the TM for 1 miles about 4x/week but denies any strength training as part of his routine. Treatment Goals Patient/Caregiver Goals Improve LE strength PT-OP-C Subjective Start: 03/16/23 10:41 Freq: Status: Active Protocol: Document 03/16/23 10:41 ED (Rec: 03/16/23 10:50 ED [id number]) Patient Questionnaires Lower Extremity Functional Scale LEFS Score 67 / 80 LEFS Impairment 1 to 19% Impaired (Score 63-79 ) PT-OP-E Functional Tests Start: 03/16/23 10:41 Freq: Status: Active Protocol: Document 03/16/23 10:41 ED (Rec: 03/16/23 10:50 ED [id number]) Functional Tests 30 Second Sit to Stand Test Score 11 Comments no UE support, lowest table setting Five Times Sit to Stand Test Score 13 Comments no UE assist PT-OP-T Assessment and Plan Start: 03/16/23 10:41 Freq: Status: Active Protocol: Document 03/16/23 10:41 ED (Rec: 03/16/23 10:50 ED [id number]) Physical Therapy Assessment Rehab Potential Rehabilitation Potential Good Evaluation Complexity Number of Personal Factors/Comorbidities 1-2 Number of Body Systems Impaired 1-2 Clinical Presentation at Evaluation Stable Impairments Impairments Functional Activities, Functional Mobility,Strength, Transfers Goals % improvement Impairment % improvement Assisted Goal (LTG) Pt will report >25% improvement in LE strength. LTG Duration 6-8 weeks 5x STS Impairment 5x STS Impairment IE: 13 seconds Short Term Goal (STG) Pt will improve 5x STS to 10 seconds. STG Duration 3 weeks Assisted Goal (LTG) Pt will improve 5x STS to 9 seconds. LTG Duration 6 weeks LEFS Impairment LEFS Impairment IE: 67 / 80 Card Dealer Goal (LTG) Pt will improve LEFS score by 3 points to a score >70/80. LTG Duration 6 weeks HEP Impairment HEP Short Term Goal (STG) Pt will report performing HEP >3 days/week. STG Duration 3 weeks Card Dealer Goal (LTG) Pt will report performing HEP >3 days/week. LTG Duration 6 weeks Assessment Summary Assessment Pt reported to PT to improve his LE strength. Pt performed 5x STS test and had an average time of 13 seconds which is slightly below the average score for his age and sex matched peers. Pt also performed 30 second sit<>stand test to assess muscular endurance and he recorded 11 stands; a score of 12-18 is considered normal for his age and sex. Pt overall did show good functional mobility but does have the capability of improving his strength with a structured exercise program. PT provided patient HEP of : sit<>stands and staggered sit< >stands. Physical Therapy Plan Frequency and Duration Frequency of Treatment 2x/Week Duration of treatment (weeks) 10 Plan of Care Start Date 03/16/23 Plan of Care End Date 06/14/23 Therapeutic Interventions Therapeutic Interventions Balance Training,Gait Training ,Home Exercise Program,Joint Mobilizations,Manual Therapy, Neuromuscular Re-education, Orthotic/Prosthetic Management ,Patient/Caregiver Education, Soft Tissue Mobilization, Taping,Therapeutic Activities, Therapeutic Exercises Next Visit Focus/Plan Next Note Type Treatment Note Next Visit Plan bike, bridge, sit<>stand, staggered, step up, LAQ
--- NOTE | 2023-03-16 10:50 | PT.OPPOC ---
Physical, Occupational & Speech Therapy At [facility] Current Diagnoses Other instability, unspecified knee (03/16/23) Pain in right knee (03/16/23) Pain in left knee (03/16/23) Other symptoms and signs involving the musculoskeletal system (03/16/23) Visit Care Team Role Provider Type Mary Barrett MD Attending Provider Physician Family Provider Primary Care Provider Referring Provider Specialty: Family Practice Address: [address] [place] [address], [id number] Email: [email or web address] Plan Of Care PT-OP-T Assessment and Plan Start: 03/16/23 10:41 Freq: Status: Active Protocol: Document 03/16/23 10:41 ED (Rec: 03/16/23 10:50 ED [id number]) Physical Therapy Assessment Rehab Potential Rehabilitation Potential Good Evaluation Complexity Number of Personal Factors/Comorbidities 1-2 Number of Body Systems Impaired 1-2 Clinical Presentation at Evaluation Stable Impairments Impairments Functional Activities, Functional Mobility,Strength, Transfers Goals % improvement Impairment % improvement Residential Goal (LTG) Pt will report >25% improvement in LE strength. LTG Duration 6-8 weeks 5x STS Impairment 5x STS Impairment IE: 13 seconds Short Term Goal (STG) Pt will improve 5x STS to 10 seconds. STG Duration 3 weeks Bullet Slugs Inspector Goal (LTG) Pt will improve 5x STS to 9 seconds. LTG Duration 6 weeks LEFS Impairment LEFS Impairment IE: 67 / 80 Bullet Slugs Inspector Goal (LTG) Pt will improve LEFS score by 3 points to a score >70/80. LTG Duration 6 weeks HEP Impairment HEP Short Term Goal (STG) Pt will report performing HEP >3 days/week. STG Duration 3 weeks Residential Goal (LTG) Pt will report performing HEP >3 days/week. LTG Duration 6 weeks Assessment Summary Assessment Pt reported to PT to improve his LE strength. Pt performed 5x STS test and had an average time of 13 seconds which is slightly below the average score for his age and sex matched peers. Pt also performed 30 second sit<>stand test to assess muscular endurance and he recorded 11 stands; a score of 12-18 is considered normal for his age and sex. Pt overall did show good functional mobility but does have the capability of improving his strength with a structured exercise program. PT provided patient HEP of : sit<>stands and staggered sit< >stands. Physical Therapy Plan Frequency and Duration Frequency of Treatment 2x/Week Duration of treatment (weeks) 10 Plan of Care Start Date 03/16/23 Plan of Care End Date 06/14/23 Therapeutic Interventions Therapeutic Interventions Balance Training,Gait Training ,Home Exercise Program,Joint Mobilizations,Manual Therapy, Neuromuscular Re-education, Orthotic/Prosthetic Management ,Patient/Caregiver Education, Soft Tissue Mobilization, Taping,Therapeutic Activities, Therapeutic Exercises Next Visit Focus/Plan Next Note Type Treatment Note Next Visit Plan bike, bridge, sit<>stand, staggered, step up, LAQ Plan of Care Dates Plan of Care Start Date 03/16/23 Plan of Care End Date 06/14/23 Electronically Signed by: Zelalem Mcgee, PT 03/16/23 [id number] If you are in agreement with this Plan of Care, please return a signed and dated copy. I have reviewed this Plan of Care and certify that the skilled therapy services above are required to meet the patient?s needs. Physician Signature Date Printed Name and Credentials Clinical Instructor Signature Printed Name and Credentials
--- NOTE | 2023-03-23 17:25 | PT.OTN ---
Current Diagnoses Other instability, unspecified knee (03/23/23) Pain in right knee (03/23/23) Pain in left knee (03/23/23) Other symptoms and signs involving the musculoskeletal system (03/23/23) Physical Therapy Treatment Note PT-OP-A Visit Information Start: 03/16/23 10:41 Freq: Status: Active Protocol: Document 03/23/23 17:17 ED (Rec: 03/23/23 17:25 ED [id number]) Out-Patient Physical Therapy Visit Information Visit Information Visit Type Treatment Note Visit Start Time 16:45 Visit Stop Time 17:25 Total Visit Minutes 40 Visit Number 2 PT-OP-B Current Condition Start: 03/16/23 10:41 Freq: Status: Active Protocol: Document 03/16/23 10:41 ED (Rec: 03/16/23 10:50 ED [id number]) Current Condition History of Current Condition Onset Date September Current Complaints B knee weakness History of Current Condition Pt states that for the past 6- 8 months that he has noticed progressive weakness in his legs, he specifies that it's his knees mostly. Pt denies having any balance deficits. He had a fall when climbing up some boulders and thinks it was due to his weakness. The fall did result in a wrist fracture. Pt states that he walks on the TM for 1 miles about 4x/week but denies any strength training as part of his routine. Treatment Goals Patient/Caregiver Goals Improve LE strength PT-OP-C Subjective Start: 03/16/23 10:41 Freq: Status: Active Protocol: Document 03/23/23 17:17 ED (Rec: 03/23/23 17:25 ED [id number]) OP-PT Subjective Patient Comments Patient Comments Pt states his legs were a little sore after doing his exercises. They were not painful, just sore. PT-OP-E Functional Tests Start: 03/16/23 10:41 Freq: Status: Active Protocol: Document 03/16/23 10:41 ED (Rec: 03/16/23 10:50 ED [id number]) Functional Tests 30 Second Sit to Stand Test Score 11 Comments no UE support, lowest table setting Five Times Sit to Stand Test Score 13 Comments no UE assist PT-OP-Q Treatments Start: 03/16/23 10:41 Freq: Status: Active Protocol: Document 03/23/23 17:17 ED (Rec: 03/23/23 17:25 ED [id number]) Cardio Equipment Recumbent Bicycle Duration (Minutes) 5 Resistance 10 Therapeutic Exercises Supine Exercises leg press Supine Exercise Name leg press Resistance 50-100# Reps/Minutes 2x12 Comments 100# - DL ; 50# - SL bridge Supine Exercise Name bridge variations Resistance 10# Reps/Minutes 1x10 ea Comments glute bridge, hamstring bridge , SL bridge, feet elevated bridge Sitting Exercises knee extension Sitting Exercise Name knee extension Resistance L2 Equipment Used machine Reps/Minutes [id number] Therapeutic Activity Therapeutic Activity squat Name sit<>stand, staggered STS Reps/Minutes 2x10 ea PT-OP-T Assessment and Plan Start: 03/16/23 10:41 Freq: Status: Active Protocol: Document 03/23/23 17:17 ED (Rec: 03/23/23 17:25 ED [id number]) Physical Therapy Assessment Goals % improvement Impairment % improvement Care Home Goal (LTG) Pt will report >25% improvement in LE strength. LTG Duration 6-8 weeks 5x STS Impairment 5x STS Impairment IE: 13 seconds Short Term Goal (STG) Pt will improve 5x STS to 10 seconds. STG Duration 3 weeks Cadd Instructor Goal (LTG) Pt will improve 5x STS to 9 seconds. LTG Duration 6 weeks LEFS Impairment LEFS Impairment IE: 67 / 80 Cadd Instructor Goal (LTG) Pt will improve LEFS score by 3 points to a score >70/80. LTG Duration 6 weeks HEP Impairment HEP Short Term Goal (STG) Pt will report performing HEP >3 days/week. STG Duration 3 weeks Care Home Goal (LTG) Pt will report performing HEP >3 days/week. LTG Duration 6 weeks Assessment Summary Assessment Pt performed primarily LE strengthening movements including bridge, sit<>stand, leg press, and knee extensions . Pt able to perform all movements comfortably and denied pain. PT informed patient he is likely to be sore in subsequent 24-48 hours d/t increased demand on musculature during session. Physical Therapy Plan Frequency and Duration Frequency of Treatment 2x/Week Duration of treatment (weeks) 10 Plan of Care Start Date 03/16/23 Plan of Care End Date 06/14/23 Therapeutic Interventions Therapeutic Interventions Balance Training,Gait Training ,Home Exercise Program,Joint Mobilizations,Manual Therapy, Neuromuscular Re-education, Orthotic/Prosthetic Management ,Patient/Caregiver Education, Soft Tissue Mobilization, Taping,Therapeutic Activities, Therapeutic Exercises Next Visit Focus/Plan Next Note Type Treatment Note Next Visit Plan bike, bridge, sit<>stand, staggered, step up, LAQ
--- NOTE | 2023-03-25 11:25 | PT.OTN ---
Current Diagnoses Other instability, unspecified knee (03/25/23) Pain in right knee (03/25/23) Pain in left knee (03/25/23) Other symptoms and signs involving the musculoskeletal system (03/25/23) Physical Therapy Treatment Note PT-OP-A Visit Information Start: 03/16/23 10:41 Freq: Status: Active Protocol: Document 03/25/23 11:21 ED (Rec: 03/25/23 11:25 ED [id number]) Out-Patient Physical Therapy Visit Information Visit Information Visit Type Discharge Summary Visit Start Time 10:45 Visit Stop Time 11:25 Total Visit Minutes 40 Visit Number 3 PT-OP-B Current Condition Start: 03/16/23 10:41 Freq: Status: Active Protocol: Document 03/16/23 10:41 ED (Rec: 03/16/23 10:50 ED [id number]) Current Condition History of Current Condition Onset Date September Current Complaints B knee weakness History of Current Condition Pt states that for the past 6- 8 months that he has noticed progressive weakness in his legs, he specifies that it's his knees mostly. Pt denies having any balance deficits. He had a fall when climbing up some boulders and thinks it was due to his weakness. The fall did result in a wrist fracture. Pt states that he walks on the TM for 1 miles about 4x/week but denies any strength training as part of his routine. Treatment Goals Patient/Caregiver Goals Improve LE strength PT-OP-C Subjective Start: 03/16/23 10:41 Freq: Status: Active Protocol: Document 03/25/23 11:21 ED (Rec: 03/25/23 11:25 ED [id number]) OP-PT Subjective Patient Comments Patient Comments Pt states that he is comfortabe being discharged at this time. He states that he thinks he can perform his home exercises consistently and that will help him improve his LE strength. PT-OP-E Functional Tests Start: 03/16/23 10:41 Freq: Status: Active Protocol: Document 03/16/23 10:41 ED (Rec: 03/16/23 10:50 ED [id number]) Functional Tests 30 Second Sit to Stand Test Score 11 Comments no UE support, lowest table setting Five Times Sit to Stand Test Score 13 Comments no UE assist PT-OP-Q Treatments Start: 03/16/23 10:41 Freq: Status: Active Protocol: Document 03/25/23 11:21 ED (Rec: 03/25/23 11:25 ED [id number]) Cardio Equipment Recumbent Bicycle Duration (Minutes) 5 Resistance 10 Therapeutic Exercises Sitting Exercises lat pull down Resistance L5 Equipment Used cable Reps/Minutes 3x10 lumbar flexion Sitting Exercise Name std lumbar flexion Equipment Used physioball Reps/Minutes 3x10 knee extension Sitting Exercise Name knee extension Resistance L3 Equipment Used machine Reps/Minutes [id number] Standing Exercises calf stretch Equipment Used MERLIN Reps/Minutes 3x1 minute Therapeutic Activity Therapeutic Activity squat Name sit<>stand Reps/Minutes 4x10 ea Comments 10# PT-OP-T Assessment and Plan Start: 03/16/23 10:41 Freq: Status: Active Protocol: Document 03/25/23 11:21 ED (Rec: 03/25/23 11:25 ED [id number]) Physical Therapy Assessment Goals % improvement Impairment % improvement Penitentiary Goal (LTG) Pt will report >25% improvement in LE strength. LTG Duration 6-8 weeks 5x STS Impairment 5x STS Impairment IE: 13 seconds Short Term Goal (STG) Pt will improve 5x STS to 10 seconds. STG Duration 3 weeks Penitentiary Goal (LTG) Pt will improve 5x STS to 9 seconds. LTG Duration 6 weeks LEFS Impairment LEFS Impairment IE: 67 / 80 Customs Import Specialist Goal (LTG) Pt will improve LEFS score by 3 points to a score >70/80. LTG Duration 6 weeks HEP Impairment HEP Short Term Goal (STG) Pt will report performing HEP >3 days/week. STG Duration 3 weeks Penitentiary Goal (LTG) Pt will report performing HEP >3 days/week. LTG Duration 6 weeks Assessment Summary Assessment Pt feels comfortable to be discharged at this time. he thinks the home exericses will be enough for him to continue improving his LE strength. Physical Therapy Plan Discharge Physical Therapy Discharge Reasons Patient Request
== END 2023-03-29 14:16 | disposition home or self-care (01) ==
LOC: PHYS 10:45
PROVIDERS: Family Provider Family Medicine; PCP Family Medicine; Referring Provider Family Medicine; Visit Provider Family Medicine
DX: M25.369 Other instability, unspecified knee (principal); M25.561 Pain in right knee; M25.562 Pain in left knee; R29.898 Other symptoms and signs involving the musculoskeletal system
CPT/HCPCS: 97110; 97161; 97530

== ENCOUNTER → 2023-08-16 10:39 | Outpatient (CLI) | payer MEDICARE, OTHER, SELFPAY ==
--- NOTE | 2023-08-16 10:45 | DI.RAD.S_ITS ---
PROCEDURE: XR SHOULDER RT MIN 2V INDICATIONS: pain TECHNIQUE: 3 views of the shoulder were acquired. COMPARISON: None. FINDINGS: Bones: Mild degenerative changes. No displaced fracture or dislocation. Soft tissues: No suspicious calcifications. IMPRESSION: Mild degenerative changes. No acute radiographic abnormality. If there is high concern for further derangement, consider MRI evaluation. Dictated by: Getachew Pineda M.D. on 08/16/2023 at 13:06 Approved by: Getachew Pineda M.D. on 08/16/2023 at 13:06
--- NOTE | 2023-08-16 10:47 | DI.RAD.S_ITS ---
PROCEDURE: XR SOFT TISSUE NECK INDICATIONS: pain TECHNIQUE: 2 views of the neck were acquired. COMPARISON: None. FINDINGS: Airway: Airway appears patent. Soft tissues: Prevertebral soft tissues are within normal limits. Epiglottis appears within normal limits by radiography. Bones: Gubz-mi-ezyxbcow degenerative changes. There are prominent anterior osteophytes. There is straightening of normal cervical lordosis. Focal calcification is seen projecting at the level of C2-C3, possibly representing vascular calcifications at the left carotid bulb IMPRESSION: Aezt-xm-jvfapvyc degenerative changes. If there is further concern, consider cross-sectional imaging. Focal calcification projects at the level of C2-C3, indeterminate but may be vascular, at the left carotid bulb, versus dystrophic soft tissue calcification. Dictated by: Getachew Pineda M.D. on 08/16/2023 at 13:07 Approved by: Getachew Pineda M.D. on 08/16/2023 at 13:08
== END ==
PROVIDERS: Family Provider Family Medicine; PCP Family Medicine; Referring Provider Family Medicine; Visit Provider Family Medicine
DX: M47.812 Spondylosis without myelopathy or radiculopathy, cervical region (principal); R52 Pain, unspecified
CPT/HCPCS: 70360; 73030

== ENCOUNTER → 2023-09-13 06:53 | Outpatient (CLI) | payer MEDICARE, OTHER, SELFPAY ==
--- NOTE | 2023-09-13 06:54 | DI.ECHO.S_ITS ---
[facility]---------+ [facility] +---------+ : : [address] : : : : [id number] : : : : Phone: [phone]+ Echocardiogram Report + + :Name: TRACY FELIX Study Date: 09/13/2023 Height: 72 in : :[facility] ReadingLocation: Weight: 255 lb : : Gender: Male BSA: 2.4 m2 : :: 1955 Age: 68 yrs BP: 172/102 mmHg: :Reason For Study: SYNCOPE AND COLLAPSE : :Ordering Physician: GER, : :ZONIA Performed By: Marky Espinal : :Referring: ZONIA CYR : + + Interpretation Summary Technically difficult study. Borderline concentric left ventricular hypertrophy with ejection fraction 55- 60%. No significant valvular abnormality. Comparison is made with the echocardiogram of 07/05/2017, no significant change. Procedure: A two-dimensional transthoracic echocardiogram with color flow and Doppler was performed. The study quality was technically difficult. Comparison is made with the echocardiogram of 07/05/2017. The patient was in normal sinus rhythm during the exam. The heart rate ranged between 53-67 bpm during the study. Left Ventricle: The left ventricle is normal in size. There is borderline concentric left ventricular hypertrophy. The ejection fraction is estimated to be 55-60%. There are no obvious focal wall motion abnormalities noted but poor endocardial definition reduces the sensitivity for the detection of such. Diastolic parameters suggest a relaxation abnormality of the left ventricle, consistent with probable normal filling pressures. Right Ventricle: The right ventricle is normal in size and function. The right ventricular systolic function is normal. Atria: The left atrial size is normal. Right atrial size is normal. The interatrial septum grossly appears intact with no obvious evidence for an atrial septal defect. Mitral Valve: The mitral valve is normal in structure and function. There is no mitral valve stenosis. There is trace mitral regurgitation. Aortic Valve: The aortic valve is trileaflet. The aortic valve opens well. There is mild aortic valve sclerosis. There is no aortic valve stenosis. No aortic regurgitation is present. Tricuspid Valve: The tricuspid valve is normal in structure and function. There is no tricuspid stenosis. No tricuspid regurgitation. Pulmonic Valve: The pulmonic valve is not well visualized. There is no pulmonic valvular stenosis. There is no pulmonic valvular regurgitation. Great Vessels: The aortic root is normal size. The dimensions of the ascending aorta are normal. The inferior vena cava was not visualized. Pericardium/ Pleura There is no pericardial effusion. There is no pleural effusion. MMode/2D Measurements & Calculations LVIDd: 5.4 cm LVOT diam: 2.3 cm LVIDs: 3.7 cm Ao root diam: 3.7 cm FS: 30.4 % asc Aorta Diam: 3.6 cm IVSd: 1.3 cm Ao Arch Diam (Prox Trans): 3.3 cm LVPWd: 1.0 cm LV flaherty. diameter/BSA (cm/m^2): 2.3 LV sys. diameter/BSA (cm/m^2): 1.6 LA A2 area: 23.2 cm2 RA long axis: 5.4 cm LA A4 area: 23.2 cm2 RA area: 16.8 cm2 LA length (vol): 5.8 cm RA vol: 44.8 ml LA vol: 79.3 ml RA : 19.0 ml/m2 LA vol index: 33.6 ml/m2 RVD1 (basal): 3.6 cm RVD2 (mid): 2.8 cm TAPSE: 2.2 cm Doppler Measurements & Calculations Ao V2 max: 138.3 cm/sec LVOT Max Elizabeth: 108.5 cm/sec Ao V2 mean: 94.5 cm/sec LV V1 max P.7 mmHg Ao max P.6 mmHg LV V1 VTI: 25.8 cm Ao mean P.1 mmHg VANDA(I,D): 3.5 cm2 Ao V2 VTI: 30.2 cm VANDA(V,D): 3.2 cm2 sev ratio: 0.86 VANDA indexed to BSA (cm^2/m^2): 1.5 MV E max elizabeth: 72.3 cm/sec PA V2 max: 111.1 cm/sec MV A max elizabeth: 76.6 cm/sec PA V2 mean: 82.5 cm/sec MV E/A: 0.95 PA mean P.0 mmHg Med Peak E' Elizabeth: 5.4 cm/sec PA pr(Accel): 36.2 mmHg E/E' med: 13.3 Lat Peak E' Elizabeth: 7.1 cm/sec E/E' lat: 10.2 E/e' average: 11.7 MV dec time: 0.27 sec SV(LVOT): 104.5 ml Electronically signed by: Harshad Porras on Reading Physician:09/13/2023 02:32 PM
== END ==
LOC: ECHO 06:54
PROVIDERS: Family Provider Family Medicine; PCP Family Medicine; Referring Provider Family Medicine; Visit Provider Family Medicine
DX: I35.8 Other nonrheumatic aortic valve disorders (principal); R55 Syncope and collapse
CPT/HCPCS: 93306

== ENCOUNTER → 2024-01-17 14:47 | Outpatient (CLI) | payer MEDICARE, OTHER, SELFPAY ==
[2024-01-17 16:24] LABS: Add Manual Diff / Slide Review NO; Basophils Absolute Auto 0 /uL (0-100); Basophils Percent Auto 0.4 % (0-2); Eosinophils Absolute Auto 300 /uL (0-450); Eosinophils Percent Auto 4.1 % (2-4); Hematocrit 44.6 % (41-53); Hemoglobin 15.2 g/dL (13.5-17.5); Lymphocytes Absolute Auto 2100 /uL (1100-4500); Lymphocytes Percent Auto 25.2 % (25-40); Mean Corpuscular HGB Conc 34.2 % (30-36); Mean Corpuscular Hemoglobin 28.5 PG (26-34); Mean Corpuscular Volume 83.3 fL (80-100); Monocytes Absolute Auto 700 /uL (0-900); Monocytes Percent Auto 8.7 % (3-14); Neutrophils Absolute Auto 5100 /uL (1500-7000); Neutrophils Percent Auto 61.6 % (50-75); Platelet Count 279 X10^3/uL (150-400); Red Blood Cell Count 5.35 X10^6/uL (4.5-5.9); Red Cell Distribution Width 13.7 % (11.6-14.8); White Blood Cell Count 8.2 X10^3/uL (4.5-11.0)
[2024-01-17 16:53] LABS: Alanine Aminotransferase 48 IU/L (<50); Albumin 4.4 g/dL (3.5-5.0); Albumin Globulin Ratio 1.7 (1.0-2.8); Alkaline Phosphatase 89 U/L (38-126); Aspartate Aminotransferase 38 IU/L (17-59); BUN Creatinine Ratio 21.3 (6-22); Bilirubin Total 0.5 mg/dL (0.2-1.3); Blood Urea Nitrogen 19 mg/dL (9-20); Calcium 9.6 mg/dL (8.4-10.2); Carbon Dioxide 24 mmol/L (22-32); Chloride 107 mmol/L (98-107); Estimated Glomerular Filt Rate > 60 mL/min (>60); Globulin 2.6 g/dL (1.7-4.1); Glucose 89 mg/dL (80-110); HEMOLYSIS < 15 (0-50); Potassium 4.3 mmol/L (3.4-5.1); Sodium 140 mmol/L (137-145)
[2024-01-17 17:09] LABS: Vitamin D 25 Hydroxy (D3) 28.8 ng/mL (30.0-100.0)
[2024-01-17 17:23] LABS: TSH w/ Reflex to FT4 1.92 uIU/mL (0.47-4.68)
[2024-01-17 17:42] LABS: Vitamin B12 525 pg/mL (239-931)
== END ==
PROVIDERS: Family Provider Family Medicine; PCP Family Medicine; Referring Provider Family Medicine; Visit Provider Family Medicine
DX: R53.83 Other fatigue (principal)
CPT/HCPCS: 36415; 80053; 82306; 82607; 84443; 85025

== ENCOUNTER → 2024-07-25 11:12 | Outpatient (CLI) | payer MEDICARE, OTHER, SELFPAY ==
[2024-07-25 12:23] LABS: Add Manual Diff / Slide Review NO; Basophils Absolute Auto 100 /uL (0-100); Basophils Percent Auto 0.8 % (0-2); Eosinophils Absolute Auto 400 /uL (0-450); Eosinophils Percent Auto 5.9 % (2-4); Hematocrit 45.8 % (41-53); Hemoglobin 15.6 g/dL (13.5-17.5); Lymphocytes Absolute Auto 2100 /uL (1100-4500); Lymphocytes Percent Auto 28.2 % (25-40); Mean Corpuscular Hemoglobin 28.4 PG (26-34); Mean Corpuscular Volume 83.4 fL (80-100); Monocytes Absolute Auto 600 /uL (0-900); Monocytes Percent Auto 8.4 % (3-14); Neutrophils Absolute Auto 4100 /uL (1500-7000); Neutrophils Percent Auto 56.7 % (50-75); Platelet Count 248 X10^3/uL (150-400); Red Cell Distribution Width 13.9 % (11.6-14.8); White Blood Cell Count 7.3 X10^3/uL (4.5-11.0)
[2024-07-25 12:54] LABS: HEMOLYSIS < 15 (0-50); Iron 115 ug/dL (49-181)
[2024-07-25 13:05] LABS: Percent Iron Saturation 44 % (20-50); Total Iron Binding Capacity 259 ug/dL (261-462); Transferrin 247 mg/dL (206-381)
[2024-07-25 13:19] LABS: TSH w/ Reflex to FT4 1.21 uIU/mL (0.47-4.68)
== END ==
PROVIDERS: Family Provider Family Medicine; PCP Family Medicine; Referring Provider Family Medicine; Visit Provider Family Medicine
DX: R53.83 Other fatigue (principal)
CPT/HCPCS: 36415; 83540; 83550; 84443; 85025